=== PATIENT | male | born 1945 | race Caucasian/White ===

== ENCOUNTER 2017-01-25 10:39 | Day surgery (SDC) | payer MEDICARE, BC ==
[~2017-01-25 10:39] MED LIST: Bupivacaine 0.5% 50 ML MDV ONE; Isosulfan Blue 5 ML SDV ONE; Lidocaine 1% with EPINEPHrine 1:100,000 50 ML MDV ONE
[2017-01-25] MEDS ORDERED: Lactated Ringers 1,000 ML IV SCH (12:00)
[2017-01-25] MEDS ORDERED: fentaNYL 100 MCG/2 ML SDV ONE (13:08)
[2017-01-25] MEDS ORDERED: Propofol 200 MG/20 ML SDV ONE (13:09)
[2017-01-25] MEDS ORDERED: Neostigmine Methylsulfate 1 MG/ML 5 ML Syringe ONE (13:09)
[2017-01-25] MEDS ORDERED: Rocuronium 50 MG/5 ML Vial ONE (13:09)
[2017-01-25] MEDS ORDERED: Midazolam 1 MG/ML 2 ML SDV ONE (13:09)
[2017-01-25] MEDS ORDERED: Dexamethasone 4 MG/ML SDV ONE (13:09)
[2017-01-25] MEDS ORDERED: Ondansetron 4 MG/2 ML SDV ONE (13:09)
[2017-01-25] MEDS ORDERED: Isosulfan Blue 5 ML SDV SUBCUT ONE (13:30)
--- NOTE | 2017-01-25 14:05 | NM ---
Lymphoscintigraphy for central localization. Images were obtained following the intradermal injection of 1.1 mCi of technetium 99 filtered sulfur colloid into the right forearm. Images obtained 20 minutes later demonstrates 2 lymph nodes of the right axilla with uptake of the i njected radiopharmaceutical.
[2017-01-25] MEDS ORDERED: Acetaminophen/HYDROcodone 325-5 MG Tab PO ONE (15:00)
[2017-01-25 16:01] VITALS: BP 146/85
--- NOTE | 2017-01-28 08:23 | OR ---
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 POSTOPERATIVE DIAGNOSIS: 1.58 mm thick malignant melanoma, right forearm. PROCEDURE: Right axillary sentinel node biopsy and wide local excision with 1.5 cm margin, right forearm 1.58 mm thick malignant melanoma. ANESTHESIA: General endotracheal. INDICATIONS: This 72-year-old white male underwent a biopsy of a lesion on his right forearm which was pigmented and returned a 1.58 mm thick malignant melanoma, superficial spreading type. He is referred for surgical treatment. I counseled him for wide local excision of this area and also right axillary sentinel node biopsy including risks and alternatives and he gave his informed consent to proceed. PROCEDURE IN DETAIL: Well prior to going to the operating room, we injected technetium-99m sulfur colloid using sterile technique about the scar on the right forearm. Nuclear medicine scanning showed that the tracer went into the axilla. He was then taken to the operating room for the right axillary sentinel biopsy and wide local excision of the primary tumor site. He was placed supine on the operating room table. General endotracheal anesthesia was given. At this point, using sterile technique, we injected isosulfan blue at the primary malignant melanoma site on the right forearm. His right upper extremity, right shoulder, axilla, and right chest were prepped and draped in the usual sterile fashion. Attention was directed to the right axilla first. The Neoprobe was used to identify the site of the sentinel node. A small incision was made over. This was carried bluntly to the sentinel node. It appeared to have some blue dye in it consistent with the isosulfan blue. This was excised. It was tested with a Neoprobe outside the body, noted to be highly radioactive. We then explored the right axilla further and found no additional significant radioactive activity. This incision was then closed in layers with a 3-0 Vicryl stitch placed to approximate the deep tissues in a running fashion, 4-0 Vicryl using a subcuticular stitch was placed to approximate the skin. The axillary incision was covered. The right forearm primary site was then marked, 1.5 cm margins were placed all around the edge of the biopsy site. We then converted this into an ellipse which would be much longer than 1.5 cm in a longitudinal direction. The elliptical incision was then made excising the tissue all way down the fascia which was sent to pathology. The incision was irrigated with sterile water and suctioned dry. A running stitch of 3-0 Vicryl was used to close the deep tissues. 3-0 Prolene and running stitch was placed to approximate the skin. Occasional vertical mattress stitch was placed to achieve good wound edge approximation. A sterile dressing was applied here and Dermabond was applied to the axilla. The anesthesia was reversed. He was extubated and brought to recovery room in good condition. Korey Camacho MD /[id number] SALIMA
== END 2017-01-25 16:10 | disposition home or self-care (01) ==
LOC: JP.SDS 10:39
PROVIDERS: ATTEND Surgery
PROC: 07B50ZX Excision of Right Axillary Lymphatic, Open Approach, Diagnostic (ICD-10-PCS; principal; 2017-01-25)
PROC: 0JBG0ZZ Excision of Right Lower Arm Subcutaneous Tissue and Fascia, Open Approach (ICD-10-PCS; 2017-01-25)
DX: C43.61 Malignant melanoma of right upper limb, including shoulder (principal); Z88.0 Allergy status to penicillin; Z88.8 Allergy status to other drugs, medicaments and biological substances; I12.9 Hypertensive chronic kidney disease with stage 1 through stage 4 chronic kidney disease, or unspecified chronic kidney disease; N18.3 Chronic kidney disease, stage 3 (moderate); E78.5 Hyperlipidemia, unspecified; K21.9 Gastro-esophageal reflux disease without esophagitis; M10.9 Gout, unspecified; G47.33 Obstructive sleep apnea (adult) (pediatric); M17.12 Unilateral primary osteoarthritis, left knee; I45.6 Pre-excitation syndrome; Z79.899 Other long term (current) drug therapy; Z87.891 Personal history of nicotine dependence
CPT/HCPCS: 25073; 38525; 78195; A9270; A9541; J1100; J2250; J2405; J2704; J3010; J7120; Q9968; 88305; 88307; 88341; 88342

== ENCOUNTER 2017-06-21 06:29 | Day surgery (SDC) | payer MEDICARE, BC ==
[2017-06-21] MEDS ORDERED: Bupivacaine 0.5% 50 ML MDV ONE (06:45)
[2017-06-21] MEDS ORDERED: Lidocaine 1% with EPINEPHrine 1:100,000 50 ML MDV ONE (06:45)
[2017-06-21] MEDS ORDERED: Lactated Ringers 1,000 ML IV SCH (07:00)
[2017-06-21] MEDS ORDERED: Clindamycin Phosphate 900 MG in Sodium Chloride 0.9% 100 ML IV ONE (07:30)
[2017-06-21] MEDS ORDERED: fentaNYL 250 MCG/5 ML SDV ONE (07:47)
[2017-06-21] MEDS ORDERED: Dexamethasone 4 MG/ML SDV ONE (07:49)
[2017-06-21] MEDS ORDERED: Propofol 200 MG/20 ML SDV ONE (07:49)
[2017-06-21] MEDS ORDERED: Rocuronium 50 MG/5 ML Vial ONE (07:49)
[2017-06-21] MEDS ORDERED: Neostigmine Methylsulfate 1 MG/ML 5 ML Syringe ONE (07:49)
[2017-06-21] MEDS ORDERED: Ondansetron 4 MG/2 ML SDV ONE (07:49)
[2017-06-21] MEDS ORDERED: Acetaminophen/HYDROcodone 325-5 MG Tab PO ONE ×2 (10:20→14:30)
[2017-06-21] MEDS ORDERED: Ketorolac 30 MG/ML SDV IM ONE (11:20)
[2017-06-21] MEDS ORDERED: Ketorolac 60 MG/2 ML SDV IM ONE (11:20)
[2017-06-21 11:22] VITALS: BP 137/80
--- NOTE | 2017-06-24 08:55 | OR ---
DATE OF PROCEDURE: 06/21/2017 PREOPERATIVE DIAGNOSIS: Bilateral reducible inguinal hernia s. POSTOPERATIVE DIAGNOSIS: Reducible indirect left inguinal hernia. Reducible direct right inguinal hernia. PROCEDURE: Bilateral inguinal hernia repair with mesh plugs and patches. ANESTHESIA: General endotracheal. INDICATIONS: This 72-year-old white male presented with an obvious left inguinal hernia. On exam, he was also found to have a right inguinal hernia. He denies predisposing factors for hernia formation. There are no signs nor symptoms of incarceration or obstruction. He is admitted for repair of his bilateral inguinal hernias. I counseled him for surgery including risks and alternatives, and he gave his informed consent to proceed. DESCRIPTION OF PROCEDURE: After adequate general endotracheal anesthesia was obtained, the patient's lower abdomen, groin, and genitalia were prepped and draped in the usual sterile fashion. Time-out was held. Attention was directed to the left groin first. A left groin incision was made 2 cm superior and medial to the inguinal ligament. This was carried deep using Bovie cautery to the external oblique. The external oblique was opened parallel to the course of its fibers. The spermatic cord was mobilized and a [place] drain was placed about it. The ilioinguinal nerve was identified and divided. The cremasteric fibers were longitudinally to reveal an indirect sac. The floor appeared to be intact. The sac was dissected free back to the peritoneal reflection and reduced back into the abdomen. A large PerFix mesh plug manufactured by [employer] was obtained. The plug was placed down through the defect underneath the fascia and anchored to the underside of the ascia with horizontal mattress stitches of 2-0 Vicryl. The approximation was of the internal leaves to the associated fascia. The onlay patch was then obtained, cut to appropriate length and placed over the inguinal floor. It was anchored to itself around the spermatic cord with a horizontal mattress stitch of 2-0 Vicryl. All looked well. The spermatic cord was returned to the inguinal canal and the external oblique was closed over it with a running stitch of 2-0 Vicryl. Interrupted 3-0 Vicryl stitches were placed to approximate Dean's fascia. The skin was closed with a subcuticular stitch of 4-0 Vicryl. The right groin incision was then made 2 cm superior and medial to the inguinal ligament. This was carried deep sharply to the external oblique. The external oblique was opened parallel to course of its fibers from the internal to the external ring. The spermatic cord was mobilized and a Junior drain was placed about it. The cremasteric fibers were longitudinally to reveal no indirect sac. The floor was essentially gone consistent with a direct inguinal hernia. This was dissected free and reduced back into the abdominal cavity. An extra-large PerFix mesh plug manufactured by [employer] was obtained and placed down under the defect. It was anchored to the underside of the fascia with horizontal mattress stitches of 2-0 Vicryl. The onlay patch was obtained, cut to appropriate length, and placed over the inguinal floor. It was attached to itself around the spermatic cord with a horizontal mattress stitch of 2-0 Vicryl. The ilioinguinal nerve on this side was also divided. The external oblique was closed with a running stitch of 2-0 Vicryl. Interrupted 3-0 Vicryl suture was placed to approximate Dean's fascia. Lidocaine 1% with epinephrine in a 50:50 mix with 0.5% Marcaine was infiltrated about both incisions. The skin incision on the right was then closed with a subcuticular stitch of 4-0 Vicryl. Dermabond was applied to both incisions. The anesthesia was reversed. He was extubated and brought to recovery room in good condition. Korey Camacho MD /[id number] MTDBreanna
== END 2017-06-21 15:38 | disposition home or self-care (01) ==
LOC: JP.SDS 06:29
PROVIDERS: ATTEND Surgery
DX: K40.90 Unilateral inguinal hernia, without obstruction or gangrene, not specified as recurrent (principal); K40.20 Bilateral inguinal hernia, without obstruction or gangrene, not specified as recurrent; G47.33 Obstructive sleep apnea (adult) (pediatric); K21.9 Gastro-esophageal reflux disease without esophagitis; I12.9 Hypertensive chronic kidney disease with stage 1 through stage 4 chronic kidney disease, or unspecified chronic kidney disease; N18.9 Chronic kidney disease, unspecified; Z88.0 Allergy status to penicillin; Z88.8 Allergy status to other drugs, medicaments and biological substances
CPT/HCPCS: 36415; 49505; 80048; 85027; A9270; C1781; J1100; J1885; J2405; J2704; J3010; J7030; J7120; S0077

== ENCOUNTER 2017-11-10 23:03 | Emergency (ER) | payer MEDICARE, BC ==
[2017-11-10] MEDS ORDERED: Aspirin 81 MG Tab.Chew PO ONE (23:30)
[2017-11-10] MEDS ORDERED: Nitroglycerin 0.4 MG Tab.SL SL PRN (23:32)
[2017-11-10] MEDS ORDERED: HYDROmorphone 0.5 MG/0.5 ML Syringe IVPUSH ONE (23:37)
[2017-11-10] MEDS ORDERED: Lactated Ringers 1,000 ML IV SCH (23:45)
--- NOTE | 2017-11-10 23:48 | EDM.PDOC ---
ED HPI GENERAL MEDICAL PROBLEM - General Chief Complaint: Gastrointestinal Problem Stated Complaint: ABD PAIN Time Seen by Provider: 11/10/17 23:30 Source of Information: Reports: Patient, Family, RN History Limitations: Reports: No Limitations - History of Present Illness INITIAL COMMENTS - FREE TEXT/NARRATIVE: 72 yo male here with abdominal pain that began about 2030h tonight. Sx's have been fairly constant since onset and pain does not move around. No fever. No nausea. No change in bowels. Had 2 bowels of wild rice soup for dinner. No hx of any abdominal surgeries. Pain only slightly worse with coughing. Onset: Today Onset Date: 11/10/17 Onset Time: 20:30 Duration: Hour(s):, Constant Location: Reports: Abdomen Quality: Reports: Ache Severity: Moderate Improves with: Reports: None Worsens with: Reports: None Context: Reports: Other (unknown) Associated Symptoms: Reports: No Other Symptoms Treatments [employer]: Reports: Other (see below) (none) Chest Pain Score (Numeric/FACES): 8 - Related Data Allergies Allergy/AdvReac Type Severity Reaction Status Date / Time hydrochlorothiazide Allergy Cannot Verified 11/10/17 23:47 Remember Penicillins Allergy Cannot Verified 11/10/17 23:47 Remember Home Meds: Home Meds ALPRAZolam [Xanax] 0.25 mg PO DAILY PRN 12/14/15 [History] Allopurinol [Zyloprim] 150 mg PO DAILY 12/14/15 [History] Colchicine 0.6 mg PO DAILY 12/14/15 [History] Furosemide 40 mg PO DAILY PRN 12/14/15 [History] Nebivolol [Bystolic] 10 mg PO BID 12/14/15 [History] Ranitidine [Zantac] 150 mg PO BID 12/14/15 [History] Valsartan 160 mg PO BID 12/14/15 [History] amLODIPine Besylate [Amlodipine Besylate] 5 mg PO BID 12/14/15 [History] atorvaSTATin [Lipitor] 40 mg PO BEDTIME 12/14/15 [History] Clindamycin HCl [Cleocin] 600 mg PO ASDIRECTED PRN 11/05/16 [History] Cyclobenzaprine [Flexeril] 10 mg PO BEDTIME PRN 01/24/17 [History] Aspirin [Adult Low Dose Aspirin EC] 81 mg PO DAILY 06/21/17 [History] Past Medical History HEENT History: Reports: Cataract, Impaired Vision Cardiovascular History: Reports: Arrhythmia, High Cholesterol, Hypertension, Other (See Below) Other Cardiovascular History: ablation 20plus years ago Respiratory History: Reports: Sleep Apnea Gastrointestinal History: Reports: Colon Polyp, Gastritis Genitourinary History: Reports: Acute Renal Failure, Renal Disease Musculoskeletal History: Reports: Arthritis, Gout Psychiatric History: Reports: Anxiety Immunologic History: Reports: None Dermatologic History: Reports: Melanoma - Infectious Disease History Infectious Disease History: Reports: Chicken Pox, Measles, Mumps - Past Surgical History Head Surgeries/Procedures: Reports: None HEENT Surgical History: Reports: Cataract Surgery Cardiovascular Surgical History: Reports: Other (See Below) Other Cardiovascular Surgeries/Procedures: ablation Respiratory Surgical History: Reports: None GI Surgical History: Reports: Colonoscopy, EGD Male Surgical History: Reports: None Musculoskeletal Surgical History: Reports: Knee Replacement, Shoulder Surgery Dermatological Surgical History: Reports: Skin Biopsy Social & Family History - Tobacco Use Smoking Status *Q: Former Smoker Years of Tobacco use: 20 Packs/Tins Daily: 1 Used Tobacco, but Quit: Yes Month Tobacco Last Used: December Second Hand Smoke Exposure: No - Caffeine Use Caffeine Use: Reports: Coffee, Soda - Alcohol Use Days Per Week of Alcohol Use: 2 Number of Drinks Per Day: 2 Total Drinks Per Week: 4 - Recreational Drug Use Recreational Drug Use: No ED ROS GENERAL - Review of Systems Review Of Systems: See Below Constitutional: Reports: No Symptoms HEENT: Reports: No Symptoms Respiratory: Reports: No Symptoms Cardiovascular: Reports: No Symptoms Endocrine: Reports: No Symptoms GI/Abdominal: Reports: Abdominal Pain. Denies: Black Stool, Bloody Stool, Constipation, Diarrhea, Decreased Appetite, Distension, Flatus, Hematemesis, Hematochezia, Melena, Nausea, Vomiting : Reports: No Symptoms Musculoskeletal: Reports: No Symptoms Skin: Reports: No Symptoms Neurological: Reports: No Symptoms Psychiatric: Reports: No Symptoms Hematologic/Lymphatic: Reports: No Symptoms Immunologic: Reports: No Symptoms ED EXAM, GI/ABD - Physical Exam Exam: See Below Exam Limited By: No Limitations General Appearance: Alert, WD/WN, No Apparent Distress Eyes: Bilateral: Normal Appearance Ears: Normal External Exam, Normal Canal, Hearing Grossly Normal Nose: Normal Inspection, Normal Mucosa, No Blood Throat/Mouth: Normal Inspection, Normal Lips, Normal Teeth, Normal Oropharynx, Normal Voice, No Airway Compromise Head: Atraumatic, Normocephalic Neck: Normal Inspection, Supple, Non-Tender Respiratory/Chest: No Respiratory Distress, Lungs Clear, Normal Breath Sounds Cardiovascular: Regular Rate, Rhythm, No Edema GI/Abdominal Exam: Normal Bowel Sounds, Soft, No Distention, Tender (diffusely, worse RUQ) Extremities: Normal Inspection, Normal Range of Motion, Non-Tender, Pedal Edema Neurological: Alert, Oriented, CN II-XII Intact, Normal Cognition, No Motor/ Sensory Deficits Psychiatric: Normal Affect, Normal Mood Skin Exam: Warm, Dry, Intact, Normal Color, No Rash Lymphatic: No Adenopathy EKG INTERPRETATION EKG Date: 11/10/17 Time: 23:20 Rhythm: NSR Rate (Beats/Min): 84 [place]: Normal P-Wave: Present QRS: LBBB ST-T: Normal QT: Normal Comparison: No Change Course - Vital Signs Last Recorded V/S: Last Vital Signs Temp 36.2 C 11/10/17 23:47 Pulse 91 11/10/17 23:47 Resp 16 11/10/17 23:47 BP 172/93 H 11/10/17 23:47 Pulse Ox 91 L 11/10/17 23:47 - Orders/Labs/Meds Orders: Active Orders 24 hr Category Date Time Status Cardiac Monitoring [RC] .As Directed Care 11/10/17 23:30 Active EKG Documentation Completion [RC] ASDIRECTED Care 11/10/17 23:30 Active Abdomen Pelvis wo Cont [CT] Stat Exams 11/11/17 02:06 Taken Lactated Ringers [Ringers, Lactated] 1,000 ml Med 11/10/17 23:45 Active IV ASDIRECTED EKG 12 Lead [EK] Routine Ther 11/10/17 23:30 Ordered Medication Orders Lactated Ringer's (Ringers, Lactated) 1,000 mls @ 150 mls/hr IV ASDIRECTED JUDY Last Admin: 11/11/17 00:02 Dose: 150 mls/hr Labs: Laboratory Tests 11/10/17 11/10/17 11/10/17 Range/Units 23:46 23:46 23:46 WBC 11.9 H (4.5-11.0) K/uL RBC 5.24 (4.30-5.90) M/uL Hgb 16.7 H (12.0-15.0) g/dL Hct 48.3 (40.0-54.0) % MCV 92 (80-98) fL MCH 32 H (27-31) pg MCHC 35 (32-36) % Plt Count 215 (150-400) K/uL Sodium 140 (140-148) mmol/L Potassium 4.2 (3.6-5.2) mmol/L Chloride 104 (100-108) mmol/L Carbon Dioxide 23 (21-32) mmol/L Anion Gap 12.7 (5.0-14.0) mmol/L BUN 24 H (7-18) mg/dL Creatinine 1.4 H (0.8-1.3) mg/dL Est Cr Clr Drug Dosing 43.94 mL/min Estimated GFR (MDRD) 50 L (>60) Glucose 122 H (74-106) mg/dL Calcium 9.9 (8.5-10.1) mg/dL Total Bilirubin 1.3 H (0.2-1.0) mg/dL AST 38 H (15-37) U/L ALT 58 (12-78) U/L Alkaline Phosphatase 143 H (46-116) U/L Troponin I (0.000-0.056) ng/mL C-Reactive Protein 0.29 (0.0-0.3) mg/dL Total Protein 7.3 (6.4-8.2) g/dL Albumin 3.7 (3.4-5.0) g/dL Globulin 3.6 H (2.3-3.5) g/dL Albumin/Globulin Ratio 1.0 L (1.2-2.2) Lipase (73-393) U/L Urine Color Urine Appearance Urine pH (4.5-8.0) Ur Specific [place] (1.008-1.030) Urine Protein (NEGATIVE) mg/dL Urine Glucose (UA) (NEGATIVE) mg/dL Urine Ketones (NEGATIVE) mg/dL Urine Occult Blood (NEGATIVE) Urine Nitrite (NEGAITVE) Urine Bilirubin (NEGATIVE) Urine Urobilinogen (NORMAL) mg/dL Ur Leukocyte Esterase (NEGATIVE) Urine RBC (0-5) Urine WBC (0-5) Ur Epithelial Cells Amorphous Sediment Urine Bacteria Urine Mucus 12/10/1811/11/17 11/11/17 Range/Units 00:17 00:19 00:26 WBC (4.5-11.0) K/uL RBC (4.30-5.90) M/uL Hgb (12.0-15.0) g/dL Hct (40.0-54.0) % MCV (80-98) fL MCH (27-31) pg MCHC (32-36) % Plt Count (150-400) K/uL Sodium (140-148) mmol/L Potassium (3.6-5.2) mmol/L Chloride (100-108) mmol/L Carbon Dioxide (21-32) mmol/L Anion Gap (5.0-14.0) mmol/L BUN (7-18) mg/dL Creatinine (0.8-1.3) mg/dL Est Cr Clr Drug Dosing mL/min Estimated GFR (MDRD) (>60) Glucose (74-106) mg/dL Calcium (8.5-10.1) mg/dL Total Bilirubin (0.2-1.0) mg/dL AST (15-37) U/L ALT (12-78) U/L Alkaline Phosphatase (46-116) U/L Troponin I < 0.017 (0.000-0.056) ng/mL C-Reactive Protein (0.0-0.3) mg/dL Total Protein (6.4-8.2) g/dL Albumin (3.4-5.0) g/dL Globulin (2.3-3.5) g/dL Albumin/Globulin Ratio (1.2-2.2) Lipase 206 (73-393) U/L Urine Color Yellow Urine Appearance Clear Urine pH 6.0 (4.5-8.0) Ur Specific [place] 1.015 (1.008-1.030) Urine Protein 500 H (NEGATIVE) mg/dL Urine Glucose (UA) Normal (NEGATIVE) mg/dL Urine Ketones Negative (NEGATIVE) mg/dL Urine Occult Blood Moderate (NEGATIVE) Urine Nitrite Negative (NEGAITVE) Urine Bilirubin Negative (NEGATIVE) Urine Urobilinogen Normal (NORMAL) mg/dL Ur Leukocyte Esterase Negative (NEGATIVE) Urine RBC 0-5 (0-5) Urine WBC 0-5 (0-5) Ur Epithelial Cells Few Amorphous Sediment Not seen Urine Bacteria Few Urine Mucus Not seen Meds: Medications Generic Name Dose Route Start Last Admin Trade Name Fredahiana PRN Reason Stop Dose Admin Lactated Ringer's 1,000 mls @ 150 mls/hr 11/10/17 23:45 11/11/17 00:02 Ringers, Lactated IV 150 mls/hr ASDIRECTED JUDY Administration Discontinued Medications Generic Name Dose Route Start Last Admin Trade Name Saniya PRN Reason Stop Dose Admin Aspirin 324 mg 11/10/17 23:30 Aspirin PO 11/10/17 23:31 ONETIME ONE Hydromorphone HCl 0.5 mg 11/10/17 23:37 11/11/17 00:02 Dilaudid IVPUSH 11/10/17 23:38 0.5 mg ONETIME ONE Administration Hydromorphone HCl 0.5 mg 11/11/17 02:06 11/11/17 02:11 Dilaudid IVPUSH 11/11/17 02:07 0.5 mg ONETIME ONE Administration Lactated Ringer's 1,000 mls @ 1,000 mls/hr 11/11/17 01:18 Ringers, Lactated IV 11/11/17 02:17 BOLUS ONE Sodium Chloride 80 mls @ 4 mls/sec 11/11/17 01:56 Normal Saline IV 11/11/17 01:57 ASDIRECTED STA Iopamidol 130 ml 11/11/17 01:56 Isovue-300 (61%) IV 11/11/17 01:57 . DIRECTED STA Nitroglycerin 0.4 mg 11/10/17 23:32 Nitrostat SL Q5M PRN Chest Pain Ondansetron HCl 4 mg 11/10/17 23:58 11/11/17 00:03 Zofran IVPUSH 11/10/17 23:59 4 mg ONETIME ONE Administration - Radiology Interpretation Free Text/Narrative:: CT abd/pelvis without contrast(done due to Cr 1.5)-non-specific findings CT Results Date: 11/11/17 CT Results Time: 02:45 Departure - Departure Time of Disposition: 02:55 Disposition: Home, Self-Care 01 Condition: Fair Clinical Impression: Nonspecific abdominal pain - Discharge Information Referrals: Richard Rossi MD [Primary Care Provider] - Forms: ED Department Discharge - My Orders Last 24 Hours: My Active Orders 11/10/17 23:30 Cardiac Monitoring [RC] .As Directed EKG Documentation Completion [RC] ASDIRECTED EKG 12 Lead [EK] Routine 11/10/17 23:45 Lactated Ringers [Ringers, Lactated] 1,000 ml IV ASDIRECTED 11/11/17 02:06 Abdomen Pelvis wo Cont [CT] Stat - Assessment/Plan Last 24 Hours: My Active Orders 11/10/17 23:30 Cardiac Monitoring [RC] .As Directed EKG Documentation Completion [RC] ASDIRECTED EKG 12 Lead [EK] Routine 11/10/17 23:45 Lactated Ringers [Ringers, Lactated] 1,000 ml IV ASDIRECTED 11/11/17 02:06 Abdomen Pelvis wo Cont [CT] Stat
[2017-11-10] MEDS ORDERED: Ondansetron 4 MG/2 ML SDV IVPUSH ONE (23:58)
[2017-11-11] MEDS ORDERED: Lactated Ringers 1,000 ML IV ONE (01:18)
[2017-11-11] MEDS ORDERED: Sodium Chloride 0.9% 80 ML IV STA (01:56)
[2017-11-11] MEDS ORDERED: Iopamidol 612 MG/ML 150 ML Bottle IV STA (01:56)
[2017-11-11] MEDS ORDERED: HYDROmorphone 0.5 MG/0.5 ML Syringe IVPUSH ONE (02:06)
[2017-11-11 02:58] VITALS: BP 174/87
== END 2017-11-11 03:05 | disposition home or self-care (01) ==
LOC: JP.ED 23:03
DX: R10.9 Unspecified abdominal pain (principal); I10 Essential (primary) hypertension; E78.00 Pure hypercholesterolemia, unspecified; F41.9 Anxiety disorder, unspecified; Z87.891 Personal history of nicotine dependence; Z79.82 Long term (current) use of aspirin; Z79.899 Other long term (current) drug therapy; Z88.0 Allergy status to penicillin; Z88.8 Allergy status to other drugs, medicaments and biological substances
CPT/HCPCS: 36415; 74176; 80053; 81001; 83690; 84484; 85027; 86140; 93005; 96361; 96374; 96375; 96376; 99285; J1170; J2405; J7120; 93010; 99284

== ENCOUNTER 2017-12-06 07:54 | Observation (INO) | payer MEDICARE, BC ==
[~2017-12-06 07:54] MED LIST changes: -Isosulfan Blue 5 ML SDV ONE
[2017-12-06] MEDS ORDERED: Dextrose 5%-Lactated Ringers 1,000 ML IV SCH (09:30)
[2017-12-06] MEDS ORDERED: Levofloxacin/Dextrose 5%-Water 500 MG in Premix Bag 1 BAG IV ONE (10:30)
[2017-12-06] MEDS ORDERED: Clindamycin Phosphate 900 MG in Sodium Chloride 0.9% 100 ML IV ONE (10:30)
[2017-12-06] MEDS ORDERED: fentaNYL 250 MCG/5 ML SDV ONE (10:48)
[2017-12-06] MEDS ORDERED: Dexamethasone 4 MG/ML SDV ONE (10:49)
[2017-12-06] MEDS ORDERED: Ondansetron 4 MG/2 ML SDV ONE (10:49)
[2017-12-06] MEDS ORDERED: Rocuronium 50 MG/5 ML Vial ONE (10:49)
[2017-12-06] MEDS ORDERED: Neostigmine Methylsulfate 1 MG/ML 5 ML Syringe ONE (10:49)
[2017-12-06] MEDS ORDERED: Glycopyrrolate 0.2 MG/ML 5 ML MDV ONE (10:49)
[2017-12-06] MEDS ORDERED: Propofol 200 MG/20 ML SDV ONE (10:49)
[2017-12-06] MEDS ORDERED: Furosemide 40 MG Tab PO PRN (12:04)
[2017-12-06] MEDS ORDERED: Cyclobenzaprine 10 MG Tab PO PRN (12:04)
[2017-12-06] MEDS ORDERED: Ondansetron 4 MG/2 ML SDV IVPUSH PRN (12:08)
[2017-12-06] MEDS ORDERED: fentaNYL 100 MCG/2 ML SDV IVPUSH PRN (12:08)
[2017-12-06] MEDS: Lactated Ringers 1,000 ML IV SCH ×2 (13:31→21:37)
--- NOTE | 2017-12-06 15:18 | OR ---
DATE OF PROCEDURE: 12/06/2017 PREOPERATIVE DIAGNOSES: Chronic cholecystitis, slightly elevated bilirubin and alkaline phosphatase, cholelithiasis. POSTOPERATIVE DIAGNOSES: Chronic cholecystitis, slightly elevated bilirubin and alkaline phosphatase, cholelithiasis. PROCEDURES: Laparoscopic cholecystectomy with attempted intraoperative cholangiogram, unsuccessful. SURGEON: Korey Camacho MD. ANESTHESIA: General endotracheal. INDICATION: This 72-year-old white male complained of upper abdominal pain. He presented to the emergency room. He was found to be tender in his right upper quadrant. CAT scan and ultrasound showed cholelithiasis. There was no ductal dilatation. His alkaline phosphatase and total bilirubin were slightly elevated. Total bilirubin was 1.3. He is admitted for a laparoscopic cholecystectomy with intraoperative cholangiogram. I counseled him for surgery including risks and alternatives, and he gave his informed consent to proceed. DESCRIPTION OF PROCEDURE: After adequate general endotracheal anesthesia was obtained, the patient's abdomen was prepped and draped in the usual sterile fashion. Time -out was held. The leg compression stockings were in place and used during the entire procedure. An infraumbilical semicircular incision was made. Under direct vision, a 12-mm port was introduced into the abdomen through this incision using the Optiview technique. The camera was introduced into the abdomen, and the abdomen was insufflated to a pressure of 20 mmHg with carbon dioxide. No evidence of intraabdominal injury was seen. Under direct vision, a 12-mm port was placed in the epigastrium and a 5-mm port was placed in the right lower quadrant. The gallbladder was grasped and elevated. It was noted to be soft, but it had a white erythematous hue consistent with chronic cholecystitis. There were adhesions of omentum to it consistent with chronic cholecystitis. These were dissected free. The cystic duct and arteries were dissected free. The cystic artery was clipped three times proximally and divided between clips. The duct was clipped at the gall bladder and we made a ductotomy. A cholangiocatheter, manufactured by [employer], was introduced into the duct. The balloon was blown up. However, we were unable to do the cholangiogram as, with injection of fluid, the balloon would come out of the ductotomy site, and we could not get anything to inject. The cholangiocatheter was then removed. The duct was clipped 3 times adjacent to the ductotomy and divided. This was all done well away from the common duct. The gallbladder was then dissected free from the gallbladder bed using Bovie electrocautery. The gallbladder was placed in a sample retrieval bag and elevated up through the anterior abdominal wall via the epigastric port site. It was delivered from the field, where it was cultured off the field and had small stones. The epigastric port was re-introduced back into the abdomen. The gallbladder bed was irrigated and suctioned dry. Hemostasis was noted. We decided to leave a Jett-Miles drain in place in the unlikely event that the there could be stone in the common duct, which would be followed with liver functions tomorrow, in which case, he might need ERCP. The fascial closure device was then used to place an 0 Vicryl stitch in the epigastric fascial defect. The infraumbilical port was removed with an interrupted stitch of 0 Vicryl used to close this fascial defect. The Jett-Miles drain was anchored with 2-0 silk suture. Lidocaine 1% with epinephrine in a 50:50 mix with 0.5% Marcaine was infiltrated about all incisions. 4-0 Vicryl using a subcuticular stitch was placed to approximate the skin of the epigastric and infraumbilical incisions. Dermabond was applied. The anesthesia was reversed. He was extubated and brought to the recovery room in a good condition. Korey Camacho MD /[id number] MTDD
[2017-12-06] MEDS: Acetaminophen/HYDROcodone 325-5 MG Tab PO PRN ×2 (16:22→20:26)
[2017-12-06] MEDS: amLODIPine 5 MG Tab PO SCH (20:30)
[2017-12-06] MEDS ORDERED: atorvaSTATin 20 MG Tab PO SCH (21:00)
[2017-12-07] MEDS: Acetaminophen/HYDROcodone 325-5 MG Tab PO PRN ×6 (00:39→21:11)
[2017-12-07] MEDS: ALPRAZolam 0.25 MG Tab PO PRN ×2 (00:39→13:08)
[2017-12-07] MEDS: Lactated Ringers 1,000 ML IV SCH ×2 (05:17→21:16)
[2017-12-07] MEDS: Colchicine 0.6 MG Tab PO SCH ×2 (08:39→08:42)
[2017-12-07] MEDS: Cholecalciferol (Vitamin D3) 1,000 Unit Tab PO SCH (08:39)
[2017-12-07] MEDS: amLODIPine 5 MG Tab PO SCH (08:57)
[2017-12-07] MEDS ORDERED: Allopurinol 300 MG Tab PO SCH (09:00)
[2017-12-07] MEDS ORDERED: ALPRAZolam 0.25 MG Tab PO PRN ×2 (15:36→20:30)
[2017-12-07] MEDS ORDERED: Melatonin 3 MG Tab PO PRN (15:39)
[2017-12-07] MEDS: Docusate Sodium 100 MG Cap PO SCH ×2 (17:10→21:12)
[2017-12-07] MEDS ORDERED: ALPRAZOLAM 0.25 MG PO PRN (20:53)
[2017-12-07] MEDS ORDERED: AMLODIPINE 10 MG PO SCH (21:00)
[2017-12-07] MEDS ORDERED: RANITIDINE 150 MG PO SCH (21:00)
[2017-12-07] MEDS ORDERED: VALSARTAN 80 MG PO SCH (21:00)
[2017-12-07] MEDS ORDERED: NEBIVOLOL 10 MG PO SCH (21:00)
[2017-12-07] MEDS ORDERED: ATORVASTATIN 20 MG PO SCH (21:00)
[2017-12-08] MEDS: Acetaminophen/HYDROcodone 325-5 MG Tab PO PRN ×2 (01:23→05:59)
[2017-12-08] MEDS ORDERED: ALPRAZolam 0.25 MG Tab PO PRN (08:52)
[2017-12-08] MEDS ORDERED: NEBIVOLOL 10 MG PO SCH (09:00)
[2017-12-08] MEDS ORDERED: Ranitidine 150 MG (PTOM) PO SCH (09:00)
[2017-12-08] MEDS ORDERED: COLCHICINE 0.6 MG PO SCH (09:00)
[2017-12-08] MEDS ORDERED: VALSARTAN 160 MG PO SCH (09:00)
[2017-12-08] MEDS ORDERED: AMLODIPINE 10 MG PO SCH (09:00)
[2017-12-08] MEDS ORDERED: ALLOPURINOL 300 MG PO SCH (09:00)
[2017-12-08] MEDS: Cholecalciferol (Vitamin D3) 1,000 Unit Tab PO SCH (09:30)
[2017-12-08 09:31] VITALS: BP 163/77
--- NOTE | 2017-12-08 09:55 | PCM.SURGPN ---
- General Info Date of Service: 12/08/17 Date of Surgery/Procedure: 12/07/17 POD#: 2 Admission Diagnosis/Problem: Cholecystectomy Functional Status: Reports: Pain Controlled, Tolerating Diet, Ambulating, Urinating, Incentive Spirometry - Review of Systems General: Reports: No Symptoms HEENT: Reports: No Symptoms Pulmonary: Reports: No Symptoms Cardiovascular: Reports: No Symptoms Gastrointestinal: Reports: No Symptoms Genitourinary: Reports: No Symptoms Musculoskeletal: Reports: No Symptoms Skin: Reports: No Symptoms Neurological: Reports: No Symptoms Psychiatric: Reports: No Symptoms - Patient Data Vitals - Most Recent: Last Vital Signs Temp 96.8 F 12/08/17 07:38 Pulse 80 12/08/17 09:28 Resp 18 12/08/17 07:38 BP 163/77 H 12/08/17 09:29 Pulse Ox 94 L 12/08/17 07:38 Weight - Most Recent: 143 lb 6.4 oz I&O - Last 24 Hours: Intake & Output 12/07/17 12/08/17 12/08/17 22:59 06:59 14:59 Intake Total 1990 1431 Output Total 230 515 Balance 1760 916 Lab Results Last 24 Hrs: Laboratory Results - last 24 hr 12/07/17 12/08/17 12/08/17 Range/Units 09:40 04:45 04:45 WBC 11.4 H (4.5-11.0) K/uL RBC 4.14 L (4.30-5.90) M/uL Hgb 13.1 (12.0-15.0) g/dL Hct 39.1 L (40.0-54.0) % MCV 94 (80-98) fL MCH 32 H (27-31) pg MCHC 34 (32-36) % Plt Count 171 (150-400) K/uL Sodium 139 L (140-148) mmol/L Potassium 4.2 (3.6-5.2) mmol/L Chloride 105 (100-108) mmol/L Carbon Dioxide 26 (21-32) mmol/L Anion Gap 12.2 (5.0-14.0) mmol/L BUN 27 H (7-18) mg/dL Creatinine 1.5 H (0.8-1.3) mg/dL Est Cr Clr Drug Dosing 40.35 mL/min Estimated GFR (MDRD) 46 L (>60) Glucose 114 H (74-106) mg/dL Calcium 8.3 L (8.5-10.1) mg/dL Total Bilirubin 1.3 H (0.2-1.0) mg/dL Direct Bilirubin 0.34 H 0.23 H (0.0-0.2) mg/dL AST 43 H (15-37) U/L ALT 73 (12-78) U/L Alkaline Phosphatase 101 (46-116) U/L Total Protein 5.3 L (6.4-8.2) g/dL Albumin 2.9 L (3.4-5.0) g/dL Globulin 2.4 (2.3-3.5) g/dL Albumin/Globulin Ratio 1.2 (1.2-2.2) Celso Results Last 24 Hrs: Microbiology 12/06/17 12:26 Anaerobic Culture - Preliminary Gallbladder Fluid - Bile NO GROWTH AFTER 2 DAYS 12/06/17 12:33 Gram Stain - Final Gallbladder Fluid - Bile Wound Culture - Preliminary NO GROWTH AFTER 2 DAYS Med Orders - Current: Current Medications Hydrocodone Bitart/Acetaminophen (Caribou 325-5 Mg) 1 - 2 tab PO Q4H PRN PRN Reason: Pain (moderate 4-6) Last Admin: 12/08/17 05:59 Dose: 2 tab Allopurinol (Zyloprim) 150 mg PO DAILY [facility] Last Admin: 12/08/17 09:28 Dose: 150 mg Alprazolam (Xanax) 0.25 mg PO Q4H PRN PRN Reason: Anxiety Alprazolam (Xanax) 0.25 mg PO DAILY PRN PRN Reason: Anxiety Amlodipine Besylate (Norvasc) 5 mg PO BID [facility] Last Admin: 12/08/17 09:29 Dose: 5 mg Cholecalciferol (Vitamin D3) 2,000 units PO DAILY [facility] Last Admin: 12/08/17 09:30 Dose: Not Given Colchicine (Colcrys) 0.6 mg PO DAILY [facility] Last Admin: 12/08/17 09:29 Dose: Not Given Cyclobenzaprine HCl (Flexeril) 10 mg PO BEDTIME PRN PRN Reason: Muscle Spasm Docusate Sodium (Colace) 100 mg PO BID [facility] Last Admin: 12/07/17 21:12 Dose: 100 mg Fentanyl (Sublimaze) 50 mcg IVPUSH Q1H PRN PRN Reason: Pain (severe 7-10) Furosemide (Lasix) 40 mg PO DAILY PRN PRN Reason: .retention Dextrose/Lactated Ringer's (Dextrose 5%-Lactated Ringers) 1,000 mls @ 100 mls/ hr IV ASDIRECTED [facility] Last Admin: 12/06/17 08:57 Dose: 100 mls/hr Lactated Ringer's (Ringers, Lactated) 1,000 mls @ 125 mls/hr IV ASDIRECTED [facility] Last Admin: 12/07/17 21:16 Dose: 125 mls/hr Melatonin (Melatonin) 9 mg PO BEDTIME PRN PRN Reason: Insomnia Last Admin: 12/08/17 01:24 Dose: 9 mg Nebivolol (Bystolic) 10 mg PO BID [facility] Last Admin: 12/08/17 09:28 Dose: 10 mg Ondansetron HCl (Zofran) 4 mg IVPUSH Q6H PRN PRN Reason: Nausea/Vomiting Last Admin: 12/06/17 13:29 Dose: 4 mg Atorvastatin 40mg ( (Ptom)) 0 each PO BEDTIME [facility] Valsartan 160mg ( (Ptom)) 0 each PO BID [facility] Last Admin: 12/08/17 09:27 Dose: 1 each Ranitidine HCl (Zantac) 150 mg PO BID [facility] Last Admin: 12/08/17 09:26 Dose: 150 mg Discontinued Medications Allopurinol (Zyloprim) 150 mg PO DAILY [facility] Last Admin: 12/07/17 08:39 Dose: 150 mg Alprazolam (Xanax) 0.25 mg PO DAILY PRN PRN Reason: Anxiety Last Admin: 12/07/17 13:08 Dose: 0.25 mg Alprazolam (Xanax) 0.25 mg PO Q4H PRN PRN Reason: Anxiety Alprazolam (Xanax) 0.25 mg PO DAILY PRN PRN Reason: Anxiety Amlodipine Besylate (Norvasc) 5 mg PO BID [facility] Last Admin: 12/07/17 08:57 Dose: 5 mg Amlodipine Besylate (Norvasc) 5 mg PO BID [facility] Last Admin: 12/07/17 21:07 Dose: 5 mg Atorvastatin Calcium (Lipitor) 40 mg PO BEDTIME [facility] Last Admin: 12/06/17 20:32 Dose: 40 mg Atorvastatin Calcium (Lipitor) 40 mg PO BEDTIME [facility] Last Admin: 12/07/17 21:10 Dose: 40 mg Bupivacaine HCl (Marcaine 0.5%) Confirm Administered Dose 50 ml .ROUTE .ST-MED ONE Stop: 12/06/17 06:40 Last Admin: 12/06/17 12:05 Dose: 10 ml Colchicine (Colcrys) 0.6 mg PO DAILY [facility] Last Admin: 12/07/17 08:42 Dose: Not Given Dexamethasone (Dexamethasone) Confirm Administered Dose 4 mg .ROUTE .STK-MED ONE Stop: 12/06/17 10:50 Fentanyl (Sublimaze) Confirm Administered Dose 250 mcg .ROUTE .[facility]-MED ONE Stop: 12/06/17 10:49 Glycopyrrolate (Robinul) Confirm Administered Dose 1 mg .ROUTE .ST-MED ONE Stop: 12/06/17 10:50 Clindamycin Phosphate 900 mg/ (Sodium Chloride) 106 mls @ 200 mls/hr IV ONETIME ONE Stop: 12/06/17 11:01 Last Admin: 12/06/17 10:45 Dose: 200 mls/hr Levofloxacin/Dextrose 500 mg/ (Premix) 100 mls @ 100 mls/hr IV ONETIME ONE Stop: 12/06/17 11:29 Last Admin: 12/06/17 11:15 Dose: 100 mls/hr Lactated Ringer's (Ringers, Lactated) 1,000 ml IRR .ST-MED ONE Stop: 12/06/17 11:21 Last Admin: 12/06/17 11:20 Dose: 1,000 ml Lidocaine/Epinephrine (Xylocaine 1% With Epinephrine 1:100,000) Confirm Administered Dose 50 ml .ROUTE .ST-MED ONE Stop: 12/06/17 06:40 Last Admin: 12/06/17 12:05 Dose: 10 ml Nebivolol (Bystolic) 10 mg PO BID [facility] Last Admin: 12/07/17 08:37 Dose: 10 mg Nebivolol (Bystolic) 10 mg PO BID [facility] Last Admin: 12/07/17 21:09 Dose: 10 mg Neostigmine Methylsulfate (Neostigmine) Confirm Administered Dose 5 mg .ROUTE .ST-MED ONE Stop: 12/06/17 10:50 Ondansetron HCl (Zofran) Confirm Administered Dose 4 mg .ROUTE .STK-MED ONE Stop: 12/06/17 10:50 Propofol (Diprivan 20 Ml) Confirm Administered Dose 200 mg .ROUTE .STK-MED ONE Stop: 12/06/17 10:50 Ranitidine HCl (Zantac) 150 mg PO BID [facility] Last Admin: 12/07/17 08:38 Dose: 150 mg Ranitidine HCl (Zantac) 150 mg PO BID [facility] Last Admin: 12/07/17 21:10 Dose: 150 mg Rocuronium Climax (Zemuron) Confirm Administered Dose 50 mg .ROUTE .STK-MED ONE Stop: 12/06/17 10:50 Valsartan (Diovan) 160 mg PO BID [facility] Last Admin: 12/07/17 08:40 Dose: 160 mg Valsartan (Diovan) 160 mg PO BID [facility] Last Admin: 12/07/17 21:06 Dose: 160 mg - Exam Wound/Incisions: Healing Well, Drainage (In CRISTINO. ) General: Alert, Oriented, Cooperative, No Acute Distress Lungs: Clear to Auscultation, Normal Respiratory Effort Cardiovascular: Regular Rate, Regular Rhythm GI/Abdominal Exam: Normal Bowel Sounds, Soft, Non-Tender, No Organomegaly, No Distention Extremities: Normal Inspection Skin: Warm, Dry, Intact Neurological: No New Focal Deficit Psy/Mental Status: Alert, Normal Affect, Normal Mood - Problem List & Annotations (1) Cholecystitis with cholelithiasis SNOMED Code(s): 419839850 Code(s): K80.10 - CALCULUS OF GALLBLADDER W CHRONIC CHOLECYST W/O OBSTRUCTION Status: Acute Current Visit: Yes Qualifiers: Cholelithiasis location: gallbladder Cholecystitis acuity: chronic Biliary obstruction: without biliary obstruction Qualified Code(s): K80.10 - Calculus of gallbladder with chronic cholecystitis without obstruction - Problem List Review Problem List Initiated/Reviewed/Updated: Yes - My Orders Last 24 Hours: Active Orders 24 hr Category Date Time Status Patient Status [ADT] Routine ADT 12/07/17 10:00 Active Ready for Discharge [RC] PER UNIT ROUTINE Care 12/08/17 09:43 Ordered ALPRAZolam [Xanax] Med 12/08/17 08:52 Active 0.25 mg PO DAILY PRN ALPRAZolam [Xanax] Med 12/07/17 20:30 Active 0.25 mg PO Q4H PRN Allopurinol [Zyloprim] Med 12/08/17 09:00 Active 150 mg PO DAILY Cholecalciferol (Vitamin D3) [Vitamin D3] Med 12/07/17 09:00 Active 2,000 units PO DAILY Colchicine [Colcrys] Med 12/08/17 09:00 Active 0.6 mg PO DAILY Docusate Sodium [Colace] Med 12/07/17 15:45 Active 100 mg PO BID Melatonin Med 12/07/17 15:39 Active 9 mg PO BEDTIME PRN Nebivolol [Bystolic] Med 12/08/17 09:00 Active 10 mg PO BID Patient's Own Medication [Ptom] Med 12/08/17 21:00 Active 0 each PO BEDTIME Patient's Own Medication [Ptom] Med 12/08/17 09:00 Active 0 each PO BID Ranitidine [Zantac] Med 12/08/17 09:00 Active 150 mg PO BID amLODIPine [Norvasc] Med 12/08/17 09:00 Active 5 mg PO BID Medication Orders Hydrocodone Bitart/Acetaminophen (Car[place]ou 325-5 Mg) 1 - 2 tab PO Q4H PRN PRN Reason: Pain (moderate 4-6) Last Admin: 12/08/17 05:59 Dose: 2 tab Admin: 12/08/17 01:23 Dose: 2 tab Admin: 12/07/17 21:11 Dose: 2 tab Admin: 12/07/17 17:09 Dose: 2 tab Admin: 12/07/17 13:07 Dose: 2 tab Admin: 12/07/17 08:35 Dose: 2 tab Admin: 12/07/17 04:31 Dose: 2 tab Admin: 12/07/17 00:39 Dose: 2 tab Admin: 12/06/17 20:26 Dose: 2 tab Admin: 12/06/17 16:22 Dose: 2 tab Allopurinol (Zyloprim) 150 mg PO DAILY [facility] Last Admin: 12/08/17 09:28 Dose: 150 mg Alprazolam (Xanax) 0.25 mg PO Q4H PRN PRN Reason: Anxiety Alprazolam (Xanax) 0.25 mg PO DAILY PRN PRN Reason: Anxiety Amlodipine Besylate (Norvasc) 5 mg PO BID [facility] Last Admin: 12/08/17 09:29 Dose: 5 mg Cholecalciferol (Vitamin D3) 2,000 units PO DAILY [facility] Last Admin: 12/08/17 09:30 Dose: Not Given Admin: 12/07/17 08:39 Dose: 2,000 units Colchicine (Colcrys) 0.6 mg PO DAILY [facility] Last Admin: 12/08/17 09:29 Dose: Not Given Cyclobenzaprine HCl (Flexeril) 10 mg PO BEDTIME PRN PRN Reason: Muscle Spasm Docusate Sodium (Colace) 100 mg PO BID [facility] Last Admin: 12/07/17 21:12 Dose: 100 mg Admin: 12/07/17 17:10 Dose: Not Given Fentanyl (Sublimaze) 50 mcg IVPUSH Q1H PRN PRN Reason: Pain (severe 7-10) Furosemide (Lasix) 40 mg PO DAILY PRN PRN Reason: .retention Dextrose/Lactated Ringer's (Dextrose 5%-Lactated Ringers) 1,000 mls @ 100 mls/ hr IV ASDIRECTED [facility] Last Admin: 12/06/17 08:57 Dose: 100 mls/hr Lactated Ringer's (Ringers, Lactated) 1,000 mls @ 125 mls/hr IV ASDIRECTED [facility] Last Admin: 12/07/17 21:16 Dose: 125 mls/hr Infusion: 12/07/17 13:17 Dose: 125 mls/hr Admin: 12/07/17 05:17 Dose: 125 mls/hr Infusion: 12/07/17 05:17 Dose: 125 mls/hr Admin: 12/06/17 21:37 Dose: 125 mls/hr Infusion: 12/06/17 21:31 Dose: 125 mls/hr Admin: 12/06/17 13:31 Dose: 125 mls/hr Melatonin (Melatonin) 9 mg PO BEDTIME PRN PRN Reason: Insomnia Last Admin: 12/08/17 01:24 Dose: 9 mg Nebivolol (Bystolic) 10 mg PO BID [facility] Last Admin: 12/08/17 09:28 Dose: 10 mg Ondansetron HCl (Zofran) 4 mg IVPUSH Q6H PRN PRN Reason: Nausea/Vomiting Last Admin: 12/06/17 13:29 Dose: 4 mg Atorvastatin 40mg ( (Ptom)) 0 each PO BEDTIME [facility] Valsartan 160mg ( (Ptom)) 0 each PO BID [facility] Last Admin: 12/08/17 09:27 Dose: 1 each Ranitidine HCl (Zantac) 150 mg PO BID [facility] Last Admin: 12/08/17 09:26 Dose: 150 mg - Assessment Assessment (Free Text/Narrative):: WHERE IS MY NOTE FROM YESTERDAY WHICH I DID??? Today he is doing fine, eating and wants to go home. We kept him as his bilirubin was up at 2., primarily indirect (direct 0.34). Today his bilirubin is down to 1.3 (where it was preroperatively) primarily indirect (direct 0.23). - Plan Plan (Free Text/Narrative):: Discharge after removal of his CRISTINO.
[2017-12-08] MEDS: Docusate Sodium 100 MG Cap PO SCH (10:32)
[2017-12-08] MEDS ORDERED: ATORVASTATIN 40MG (PTOM) PO SCH (21:00)
== END 2017-12-08 10:45 | disposition home or self-care (01) ==
LOC: JP.SDS 07:54 → JP.MS 12:08 → JP.SDS 12-07 10:00
PROVIDERS: ADMIT Surgery; ATTEND Surgery
DX: K80.10 Calculus of gallbladder with chronic cholecystitis without obstruction (principal); G47.33 Obstructive sleep apnea (adult) (pediatric); I45.6 Pre-excitation syndrome; E78.5 Hyperlipidemia, unspecified; I12.9 Hypertensive chronic kidney disease with stage 1 through stage 4 chronic kidney disease, or unspecified chronic kidney disease; K21.9 Gastro-esophageal reflux disease without esophagitis; N18.3 Chronic kidney disease, stage 3 (moderate); K76.0 Fatty (change of) liver, not elsewhere classified; M17.12 Unilateral primary osteoarthritis, left knee; M1A.30X0 Chronic gout due to renal impairment, unspecified site, without tophus (tophi); Z86.010 Personal history of colon polyps; Z96.652 Presence of left artificial knee joint; Z79.82 Long term (current) use of aspirin; Z88.8 Allergy status to other drugs, medicaments and biological substances; Z88.0 Allergy status to penicillin; Z87.891 Personal history of nicotine dependence
CPT/HCPCS: 36415; 47562; 74018; 80053; 82248; 85025; 85027; 87070; 87075; 87205; 94762; 96361; 96365; A9270; G0378; J1100; J1956; J2405; J2704; J2710; J3010; J7030; J7042; J7120; 88304; S0077

== ENCOUNTER 2019-09-25 06:58 | Day surgery (SDC) | payer MEDICARE, BC ==
[2019-09-25] MEDS: Lactated Ringers 1,000 ML IV SCH (07:33)
[2019-09-25] MEDS ORDERED: Propofol 200 MG/20 ML SDV ONE ×2 (07:34→08:32)
[2019-09-25] MEDS ORDERED: Midazolam 1 MG/ML 2 ML SDV ONE (07:35)
[2019-09-25] MEDS ORDERED: fentaNYL 100 MCG/2 ML SDV ONE (07:35)
[2019-09-25 09:49] VITALS: BP 134/76; PULSE 62
--- NOTE | 2019-09-28 09:15 | OR ---
DATE OF PROCEDURE: 09/25/2019 SURGEON: Korey Camacho MD PREOPERATIVE DIAGNOSIS: History of tubular adenomas. POSTOPERATIVE DIAGNOSES: Three right-sided colon polyps, history of tubular adenomas. PROCEDURES: Colonoscopy to the cecum with biopsy resection of colon polyps x2 and snare cautery polypectomy x1. ANESTHESIA: IV anesthesia with monitored anesthesia care. INDICATION: This 74-year-old white male is referred for a colonoscopy because of a history of tubular adenomas. His last colonoscopic exam was done about 3 years ago where a couple of tubular adenomas were removed. I counseled him for the procedure, including risks and alternatives, and he gave his informed consent to proceed. DESCRIPTION OF PROCEDURE: The patient was placed in the left lateral decubitus position. IV anesthesia was administered by the Anesthesia Service. Time-out was held. A rectal exam was performed, which was unremarkable. The flexible video Olympus colonoscope was introduced through his anus, up his rectum, out his colon all the way to the cecum. En route, at the hepatic flexure, we encountered a polyp, which was large enough to pass a snare about it. It was amputated as electrocautery was applied. It was aspirated up on the end of the scope and the scope was removed with the polyp retrieved from the end of the scope. The scope was reintroduced back up to the hepatic flexure. Residual polypoid tissue was removed with a snare and biopsy forceps. The scope was then passed to the cecum and slowly withdrawn. In the proximal right colon, we saw a small polyp which was removed with the biopsy forceps and in the distal right colon, we saw another small polyp, which was removed with the biopsy forceps. The scope was withdrawn the rest of the way with no other lesions noted. The scope was retroflexed in the rectum with the distal rectum appearing unremarkable. The scope was straightened and removed. He tolerated the procedure well. Korey Camacho MD /[id number]
== END 2019-09-25 09:57 | disposition home or self-care (01) ==
LOC: JP.SDS 06:58
PROVIDERS: ATTEND Surgery
DX: Z12.11 Encounter for screening for malignant neoplasm of colon (principal); D12.3 Benign neoplasm of transverse colon; D12.2 Benign neoplasm of ascending colon; E78.5 Hyperlipidemia, unspecified; K21.9 Gastro-esophageal reflux disease without esophagitis; G47.33 Obstructive sleep apnea (adult) (pediatric); M10.9 Gout, unspecified; N18.3 Chronic kidney disease, stage 3 (moderate); Z88.8 Allergy status to other drugs, medicaments and biological substances; Z86.010 Personal history of colon polyps
CPT/HCPCS: 45380; 45385; J2250; J2704; J3010; J7120

== ENCOUNTER 2021-03-06 07:25 | Emergency (ER) | payer MEDICARE, BC ==
[2021-03-06] MEDS ORDERED: Sodium Chloride 0.9% 10 ML Syringe FLUSH PRN (07:41)
[2021-03-06] MEDS: Aspirin 81 MG Tab.Chew PO ONE (07:49)
[2021-03-06] MEDS: Aspirin 81 MG Tab.Chew ONE (07:49)
--- NOTE | 2021-03-06 07:50 | EDM.PDOC ---
ED HPI GENERAL MEDICAL PROBLEM - General Chief Complaint: Chest Pain Stated Complaint: CHEST PAIN Time Seen by Provider: 03/06/21 07:35 Source of Information: Reports: Patient, Old Records History Limitations: Reports: No Limitations - History of Present Illness INITIAL COMMENTS - FREE TEXT/NARRATIVE: 76 yo male is here with moderate anterior chest pressure that began in the mi ddle of the night and awoke him from sleep. Pain did go away for awhile after Peptobismol, but then came back. Has known CAD. Has NTG at home, but did not take any. Last Saturday had an exercise stress test, but does not yet know the results. Has a known LBBB. Describes pain now as 7/10 in severity. Took none of his morning meds yet today. Says Dr. Rossi had him stop his amlodipine a week ago due to fluid retention in his legs, he is not sure what dose he was on. Onset: Today, Sudden Onset Date: 03/06/21 Onset Time: 03:00 Duration: Hour(s):, Constant Location: Reports: Chest Quality: Reports: Pressure Severity: Moderate Improves with: Reports: None Worsens with: Reports: Other (unsure) Context: Reports: Other (See HPI) Associated Symptoms: Reports: No Other Symptoms Treatments ALLOCATIONS CLERK: Reports: Other (see below) (one dose of Peptobismol in the night) Chest Pain Score (Numeric/FACES): 8 - Related Data Allergies Allergy/AdvReac Type Severity Reaction Status Date / Time hydrochlorothiazide Allergy Rash Verified 03/06/21 07:41 Penicillins Allergy Rash Verified 03/06/21 07:41 Home Meds: Home Meds ALPRAZolam [Xanax] 0.25 mg PO DAILY PRN 12/14/15 [History] Colchicine 0.6 mg PO DAILY 12/14/15 [History] Furosemide 40 mg PO DAILY 12/14/15 [History] Nebivolol [Bystolic] 20 mg PO BID 12/14/15 [History] atorvaSTATin [Lipitor] 40 mg PO BEDTIME 12/14/15 [History] Cholecalciferol (Vitamin D3) [Vitamin D3] 2,000 units PO DAILY 12/04/17 [History] Aspirin [Halfprin] 81 mg PO DAILY 09/23/19 [History] Clindamycin HCl 600 mg PO ASDIRECTED 09/23/19 [History] Famotidine [Pepcid] 20 mg PO BID 09/23/19 [History] Irbesartan [Avapro] 300 mg PO DAILY 09/23/19 [History] cloNIDine [Catapres] 0.1 mg PO DAILY 09/23/19 [History] Nitroglycerin [Nitrostat] 0.4 mg SL ASDIRECTED 03/06/21 [History] Past Medical History HEENT History: Reports: Cataract, Impaired Vision Cardiovascular History: Reports: Arrhythmia, High Cholesterol, Hypertension, [place], Other (See Below) Other Cardiovascular History: ablation 20plus years ago Respiratory History: Reports: Sleep Apnea Gastrointestinal History: Reports: Cholelithiasis, Colon Polyp, Gastritis Genitourinary History: Reports: Acute Renal Failure, Renal Disease Musculoskeletal History: Reports: Arthritis, Fracture, Gout Psychiatric History: Reports: Anxiety Immunologic History: Reports: None Oncologic (Cancer) History: Reports: Malignant Melanoma Dermatologic History: Reports: Melanoma - Infectious Disease History Infectious Disease History: Reports: Chicken Pox, Measles, Mumps - Past Surgical History Head Surgeries/Procedures: Reports: None HEENT Surgical History: Reports: Cataract Surgery Cardiovascular Surgical History: Reports: Other (See Below) Other Cardiovascular Surgeries/Procedures: ablation Respiratory Surgical History: Reports: None GI Surgical History: Reports: Cholecystectomy, Colonoscopy, EGD, Hernia, Inguinal Male Surgical History: Reports: None Musculoskeletal Surgical History: Reports: Knee Replacement, Shoulder Surgery Oncologic Surgical History: Reports: None Dermatological Surgical History: Reports: Skin Biopsy Social & Family History - Caffeine Use Caffeine Use: Reports: Coffee ED ROS GENERAL - Review of Systems Review Of Systems: See Below Constitutional: Reports: No Symptoms HEENT: Reports: No Symptoms Respiratory: Reports: No Symptoms Cardiovascular: Reports: Chest Pain Endocrine: Reports: No Symptoms GI/Abdominal: Reports: No Symptoms : Reports: No Symptoms Musculoskeletal: Reports: No Symptoms Skin: Reports: No Symptoms Neurological: Reports: No Symptoms Psychiatric: Reports: No Symptoms ED EXAM, GENERAL - Physical Exam Exam: See Below Exam Limited By: No Limitations General Appearance: Alert, WD/WN, No Apparent Distress Eye Exam: Bilateral Eye: Normal Inspection Ears: Normal External Exam, Normal Canal, Hearing Grossly Normal Ear Exam: Bilateral Ear: Auricle Normal, Canal Normal Nose: Normal Inspection, No Blood Throat/Mouth: Normal Inspection, Normal Lips, Normal Oropharynx, Normal Voice, No Airway Compromise Head: Atraumatic, Normocephalic Neck: Normal Inspection Respiratory/Chest: No Respiratory Distress, Lungs Clear, Normal Breath Sounds, No Accessory Muscle Use, Chest Non-Tender Cardiovascular: Regular Rate, Rhythm, No Edema GI/Abdominal: Normal Bowel Sounds, Soft, Non-Tender, No Distention. No: Distended Back Exam: Normal Inspection. No: CVA Tenderness (R), CVA Tenderness (L) Extremities: Normal Inspection, Normal Range of Motion, Non-Tender, Pedal Edema (Trace pitting edema of both LE's). No: No Pedal Edema Neurological: Alert, Oriented, CN II-XII Intact, Normal Cognition, No Motor/Sensory Deficits Psychiatric: Normal Affect, Normal Mood Skin Exam: Warm, Dry, Intact, Normal Color, No Rash #1 Interpretation EKG Date: 03/06/21 Time: 07:30 Rhythm: NSR Rate (Beats/Min): 94 P-Wave: Present QRS: LBBB (not new) ST-T: Depressed (seems more pronounced in lateral leads than in his last EKG.) QT: Normal Comparison: Change From Previous EKG Course - Vital Signs Last Recorded V/S: Last Vital Signs Temp 36.6 C 03/06/21 07:38 Pulse 94 03/06/21 08:00 Resp 13 03/06/21 08:00 BP 182/108 H 03/06/21 08:00 Pulse Ox 91 L 03/06/21 08:00 - Orders/Labs/Meds Orders: Active Orders 24 hr Category Date Time Status Cardiac Monitoring [RC] .As Directed Care 03/06/21 07:25 Active EKG Documentation Completion [RC] ASDIRECTED Care 03/06/21 07:25 Active Oxygen Therapy Adult [Oxygen Therapy, ED] [RC] Care 03/06/21 07:42 Active ASDIRECTED Nitroglycerin [Nitrostat] Med 03/06/21 07:40 Active 0.4 mg SL Q5M PRN Sodium Chloride 0.9% [Saline Flush] Med 03/06/21 07:41 Active 10 ml FLUSH ASDIRECTED PRN Saline Lock Insert [OM.PC] Routine Oth 03/06/21 07:41 Ordered EKG 12 Lead [EK] Routine Ther 03/06/21 07:25 Ordered Medication Orders Nitroglycerin (Nitroglycerin 0.4 Mg Tab.Sl) 0.4 mg SL Q5M PRN PRN Reason: Chest Pain Last Admin: 03/06/21 07:51 Dose: 0.4 mg Documented by: CHRISTIANO Sodium Chloride (Sodium Chloride 0.9% 10 Ml Syringe) 10 ml FLUSH ASDIRECTED PRN PRN Reason: Keep Vein Open Labs: Laboratory Tests 03/06/21 03/06/21 03/06/21 Range/Units 07:41 07:41 10:23 WBC 11.1 H (4.5-11.0) K/uL RBC 5.07 (4.30-5.90) M/uL Hgb 16.7 H D (12.0-15.0) g/dL Hct 47.9 (40.0-54.0) % MCV 95 (80-98) fL MCH 33 H (27-31) pg MCHC 35 (32-36) % Plt Count 217 (150-400) K/uL Sodium 148 (140-148) mmol/L Potassium 4.4 (3.6-5.2) mmol/L Chloride 107 (100-108) mmol/L Carbon Dioxide 24 (21-32) mmol/L Anion Gap 17.5 H (5.0-14.0) mmol/L BUN 36 H (7-18) mg/dL Creatinine 2.1 H (0.8-1.3) mg/dL Est Cr Clr Drug Dosing 27.54 mL/min Estimated GFR (MDRD) 31 L (>60) Glucose 121 H (74-106) mg/dL Calcium 10.1 D (8.5-10.1) mg/dL Troponin I < 0.017 0.396 H* (0.000-0.056) ng/mL Meds: Medications Generic Name Dose Route Start Last Admin Trade Name Freq PRN Reason Stop Dose Admin Nitroglycerin 0.4 mg 03/06/21 07:40 03/06/21 07:51 Nitroglycerin 0.4 Mg Tab.Sl SL 0.4 mg Q5M PRN Administration Chest Pain Sodium Chloride 10 ml 03/06/21 07:41 Sodium Chloride 0.9% 10 Ml Syringe FLUSH ASDIRECTED PRN Keep Vein Open Discontinued Medications Generic Name Dose Route Start Last Admin Trade Name Freq PRN Reason Stop Dose Admin Al Hydroxide/Mg Hydroxide 30 ml 03/06/21 08:01 03/06/21 08:04 Aluminum Hydroxide/Magnesium Hydroxide/Simethicone Susp 30 Ml Cup PO 03/06/21 08:02 30 ml ONETIME ONE Administration Alprazolam 0.25 mg 03/06/21 09:08 03/06/21 09:30 Alprazolam 0.25 Mg Tab PO 03/06/21 09:09 0.25 mg NOW ONE Administration Aspirin 324 mg 03/06/21 07:41 03/06/21 07:49 Aspirin 81 Mg Tab.Chew PO 03/06/21 07:42 324 mg ONETIME ONE Administration Aspirin Confirm 03/06/21 07:48 03/06/21 07:49 Aspirin 81 Mg Tab.Chew Administered 03/06/21 07:49 Not Given Dose 81 mg .ROUTE .STK-MED ONE Clonidine HCl 0.1 mg 03/06/21 07:47 03/06/21 07:52 Clonidine 0.1 Mg Tab PO 03/06/21 07:48 0.1 mg ONETIME ONE Administration Famotidine 20 mg 03/06/21 07:50 03/06/21 07:58 Famotidine 20 Mg Tab PO 03/06/21 07:51 20 mg ONETIME ONE Administration Furosemide 40 mg 03/06/21 07:53 03/06/21 07:58 Furosemide 40 Mg Tab PO 03/06/21 07:54 40 mg ONETIME ONE Administration Losartan Potassium 100 mg 03/06/21 07:49 03/06/21 07:57 Losartan 50 Mg Tab PO 03/06/21 07:50 100 mg ONETIME ONE Administration Nebivolol 20 mg 03/06/21 07:47 03/06/21 07:58 Nebivolol 10 Mg Tab PO 03/06/21 07:48 20 mg STAT STA Administration - Re-Assessments/Exams Free Text/Narrative Re-Assessment/Exam: 03/06/21 08:14 Pain decreased from a 7 to a 1 after NTG x 1. Free Text/Narrative Re-Assessment/Exam: 03/06/21 08:21 Pain went from 1/10 to 0/10 after Maalox. Free Text/Narrative Re-Assessment/Exam: 03/06/21 11:01 Fed him breakfast while waiting. Departure - Departure Time of Disposition: 11:50 Disposition: DC/Tfer to Acute Hospital 02 Reason for Transfer *Q: Other Condition: Serious Clinical Impression: Non-STEMI (non-ST elevated myocardial infarction), Mild dehydration CRF (chronic renal failure) Qualifiers: Chronic kidney disease stage: stage 3 (moderate) Chronic kidney disease stage 3 subtype: stage 3b (GFR 30-44) Qualified Code(s): N18.32 - Chronic kidney disease, stage 3b Referrals: Richard Rossi MD [Primary Care Provider] - Forms: ED Department Discharge Sepsis Event Note (ED) - Evaluation Sepsis Screening Result: No Definite Risk - Focused Exam Vital Signs: Vital Signs Temp Pulse Pulse Resp BP BP Pulse Ox 03/06/21 08:00 94 13 182/108 H 91 L 03/06/21 07:58 96 182/108 H 03/06/21 07:57 182/108 H 03/06/21 07:52 199/109 H 03/06/21 07:51 199/109 H 03/06/21 07:38 36.6 C 94 14 199/109 H 97 - My Orders Last 24 Hours: My Active Orders 03/06/21 07:25 Cardiac Monitoring [RC] .As Directed EKG Documentation Completion [RC] ASDIRECTED EKG 12 Lead [EK] Routine 03/06/21 07:40 Nitroglycerin [Nitrostat] 0.4 mg SL Q5M PRN 03/06/21 07:41 Sodium Chloride 0.9% [Saline Flush] 10 ml FLUSH ASDIRECTED PRN Saline Lock Insert [OM.PC] Routine 03/06/21 07:42 Oxygen Therapy Adult [Oxygen Therapy, ED] [RC] ASDIRECTED - Assessment/Plan Last 24 Hours: My Active Orders 03/06/21 07:25 Cardiac Monitoring [RC] .As Directed EKG Documentation Completion [RC] ASDIRECTED EKG 12 Lead [EK] Routine 03/06/21 07:40 Nitroglycerin [Nitrostat] 0.4 mg SL Q5M PRN 03/06/21 07:41 Sodium Chloride 0.9% [Saline Flush] 10 ml FLUSH ASDIRECTED PRN Saline Lock Insert [OM.PC] Routine 03/06/21 07:42 Oxygen Therapy Adult [Oxygen Therapy, ED] [RC] ASDIRECTED
[2021-03-06] MEDS: Nitroglycerin 0.4 MG Tab.SL SL PRN (07:51)
[2021-03-06] MEDS: cloNIDine 0.1 MG Tab PO ONE (07:52)
[2021-03-06] MEDS: Losartan 50 MG Tab PO ONE (07:57)
[2021-03-06] MEDS: Famotidine 20 MG Tab PO ONE (07:58)
[2021-03-06] MEDS: Furosemide 40 MG Tab PO ONE (07:58)
[2021-03-06] MEDS: Aluminum Hydroxide/Magnesium Hydroxide/Simethicone Susp 30 ML Cup PO ONE (08:04)
--- NOTE | 2021-03-06 09:10 | CR ---
CHEST: Portable 03/06/2021 at 8:35 AM CLINICAL HISTORY:Chest pain COMPARISON:None FINDINGS: The heart is enlarged. Pulmonary vascular is normal. No infiltrate effusion or pneumothorax is seen. There are atherosclerotic changes in the aorta. IMPRESSION: No acute cardiopulmonary process. Cardiomegaly
[2021-03-06] MEDS: ALPRAZolam 0.25 MG Tab PO ONE (09:30)
[2021-03-06] MEDS: Heparin Sodium 5,000 Units/ML Vial IVPUSH ONE (11:36)
[2021-03-06] MEDS: Heparin Sodium/D5W 25,000 UNITS/500 ML BAG IV SCH (11:36)
[2021-03-06] MEDS: Ticagrelor 90 MG Tab PO ONE (11:37)
[2021-03-06] MEDS: LORazepam 0.5 MG Tab PO ONE (11:41)
[2021-03-06 12:13] VITALS: BP 205/111; PULSE 76
== END 2021-03-06 13:07 ==
LOC: JP.ED 07:25
DX: I21.4 Non-ST elevation (NSTEMI) myocardial infarction (principal); E86.0 Dehydration; E78.00 Pure hypercholesterolemia, unspecified; I10 Essential (primary) hypertension; I25.2 Old myocardial infarction; M10.9 Gout, unspecified; Z79.82 Long term (current) use of aspirin; Z79.899 Other long term (current) drug therapy; Z88.8 Allergy status to other drugs, medicaments and biological substances; Z88.0 Allergy status to penicillin
CPT/HCPCS: 36415; 71045; 80048; 84484; 85027; 93005; 96365; 99285; A9270; J1644

== ENCOUNTER 2021-05-24 16:35 | Emergency (ER) | payer MEDICARE, BC ==
[2021-05-24 17:17] VITALS: BP 171/103; PULSE 85
[2021-05-24] MEDS ORDERED: Lidocaine 2% Viscous Solution 15 ML Cup TOP ONE (17:29)
--- NOTE | 2021-05-24 17:33 | EDM.PDOC ---
ED HPI GENERAL MEDICAL PROBLEM - General Chief Complaint: Upper Extremity Injury/Pain Stated Complaint: TRIPPED AND HURT LEFT ARM Time Seen by Provider: 05/24/21 17:25 Source of Information: Reports: Patient, Family, Old Records, RN History Limitations: Reports: No Limitations - History of Present Illness INITIAL COMMENTS - FREE TEXT/NARRATIVE: 76 yo male fell at home and incurred a skin tear to his L forearm. No other injuries. Is not sure about his last tetanus. Is on blood thinners. Onset: Today, Sudden Onset Date: 05/24/21 Duration: Minutes:, Constant Location: Reports: Upper Extremity, Left Quality: Reports: Burning Severity: Mild Improves with: Reports: None Worsens with: Reports: None Context: Reports: Trauma Associated Symptoms: Reports: No Other Symptoms Treatments LEAF TINNER: Reports: Other (see below) (wrapped wound) Left Arm Pain Score (Numeric/FACES): 4 - Related Data Allergies Allergy/AdvReac Type Severity Reaction Status Date / Time hydrochlorothiazide Allergy Rash Verified 03/06/21 07:41 Penicillins Allergy Rash Verified 03/06/21 07:41 Home Meds: Home Meds ALPRAZolam [Xanax] 0.25 mg PO DAILY PRN 12/14/15 [History] Colchicine 0.6 mg PO DAILY 12/14/15 [History] Furosemide 40 mg PO DAILY 12/14/15 [History] Nebivolol [Bystolic] 20 mg PO BID 12/14/15 [History] atorvaSTATin [Lipitor] 40 mg PO BEDTIME 12/14/15 [History] Cholecalciferol (Vitamin D3) [Vitamin D3] 2,000 units PO DAILY 12/04/17 [History] Aspirin [Halfprin] 81 mg PO DAILY 09/23/19 [History] Clindamycin HCl 600 mg PO ASDIRECTED 09/23/19 [History] Famotidine [Pepcid] 20 mg PO BID 09/23/19 [History] Irbesartan [Avapro] 300 mg PO DAILY 09/23/19 [History] cloNIDine [Catapres] 0.1 mg PO DAILY 09/23/19 [History] Nitroglycerin [Nitrostat] 0.4 mg SL ASDIRECTED 03/06/21 [History] Past Medical History HEENT History: Reports: Cataract, Impaired Vision Cardiovascular History: Reports: Arrhythmia, High Cholesterol, Hypertension, [place], Other (See Below) Other Cardiovascular History: ablation 20plus years ago Respiratory History: Reports: Sleep Apnea Gastrointestinal History: Reports: Cholelithiasis, Colon Polyp, Gastritis Genitourinary History: Reports: Acute Renal Failure, Renal Disease Musculoskeletal History: Reports: Arthritis, Fracture, Gout Psychiatric History: Reports: Anxiety Immunologic History: Reports: None Oncologic (Cancer) History: Reports: Malignant Melanoma Dermatologic History: Reports: Melanoma - Infectious Disease History Infectious Disease History: Reports: Chicken Pox, Measles, Mumps - Past Surgical History Head Surgeries/Procedures: Reports: None HEENT Surgical History: Reports: Cataract Surgery Cardiovascular Surgical History: Reports: Other (See Below) Other Cardiovascular Surgeries/Procedures: ablation Respiratory Surgical History: Reports: None GI Surgical History: Reports: Cholecystectomy, Colonoscopy, EGD, Hernia, Inguinal Male Surgical History: Reports: None Musculoskeletal Surgical History: Reports: Knee Replacement, Shoulder Surgery Oncologic Surgical History: Reports: None Dermatological Surgical History: Reports: Skin Biopsy Social & Family History - Tobacco Use Tobacco Use Status *Q: Never Tobacco User - Caffeine Use Caffeine Use: Reports: Coffee - Recreational Drug Use Recreational Drug Use: No Review of Systems - Review of Systems Review Of Systems: See Below Constitutional: Reports: No Symptoms Musculoskeletal: Reports: No Symptoms Skin: Reports: Wound (skin tear L lateral forearm) Neurological: Reports: No Symptoms ED EXAM, GENERAL - Physical Exam Exam: See Below Exam Limited By: No Limitations General Appearance: Alert, WD/WN, No Apparent Distress Extremities: Normal Range of Motion, Other (wound L forearm). No: Pedal Edema, Limited Range of Motion, Increased Warmth Neurological: Alert, Oriented, CN II-XII Intact, Normal Cognition, No Motor/Sensory Deficits Psychiatric: Normal Affect, Normal Mood Skin Exam: Warm, Dry, Normal Color, No Rash, Wound/Incision (skin tear L lateral forearm). No: Intact Course - Vital Signs Text/Narrative:: Wound cleaned and debrided and dressed by RN. Last Recorded V/S: Last Vital Signs Temp 35.7 C L 05/24/21 16:49 Pulse 85 05/24/21 16:49 Resp 16 05/24/21 16:49 BP 171/103 H 05/24/21 16:49 Pulse Ox 95 05/24/21 16:49 - Orders/Labs/Meds Orders: Active Orders 24 hr Category Date Time Status Vaccines to be Administered [RC] PER UNIT ROUTINE Care 05/24/21 17:35 Active Bacitracin [Bacitracin Oint 1 GM] Med 05/24/21 18:08 Once 4 dose TOP ONETIME ONE Meds: Medications Discontinued Medications Generic Name Dose Route Start Last Admin Trade Name Saniya PRN Reason Stop Dose Admin Diphtheria/Tetanus/Acell Pertussis 0.5 ml 05/24/21 17:35 Diphtheria,Pertussis(Acell),Tetanus Vaccine 0.5 Ml Syringe IM 05/24/21 17:36 .ONCE ONE Lidocaine HCl 15 ml 05/24/21 17:29 05/24/21 17:47 Lidocaine 2% Viscous Solution 15 Ml Cup TOP 05/24/21 17:30 15 ml ONETIME ONE Administration Departure - Departure Time of Disposition: 18:15 Disposition: Home, Self-Care 01 Condition: Good Clinical Impression: Skin tear of left forearm without complication Qualifiers: Encounter type: initial encounter Qualified Code(s): S51.812A - Laceration without foreign body of left forearm, initial encounter - Discharge Information *PRESCRIPTION DRUG MONITORING PROGRAM REVIEWED*: Not Applicable *COPY OF PRESCRIPTION DRUG MONITORING REPORT IN PATIENT TRACEY: Not Applicable Instructions: Skin Tear, [id number] Referrals: Richard Rossi MD [Primary Care Provider] - Forms: ED Department Discharge Additional Instructions: Starting tomorrow clean wound with either soap and water or 1/2 water and 1/2 peroxide twice daily. Dry. Apply antibiotic ointment and a new dressing. Take acetaminophen as needed for pain relief. Recheck in the clinic on Saturday, call for an appt. Sepsis Event Note (ED) - Evaluation Sepsis Screening Result: No Definite Risk - Focused Exam Vital Signs: Vital Signs Temp Pulse Resp BP Pulse Ox 05/24/21 16:49 35.7 C L 85 16 171/103 H 95 - My Orders Last 24 Hours: My Active Orders 05/24/21 17:35 Vaccines to be Administered [RC] PER UNIT ROUTINE 05/24/21 18:08 Bacitracin [Bacitracin Oint 1 GM] 4 dose TOP ONETIME ONE - Assessment/Plan Last 24 Hours: My Active Orders 05/24/21 17:35 Vaccines to be Administered [RC] PER UNIT ROUTINE 05/24/21 18:08 Bacitracin [Bacitracin Oint 1 GM] 4 dose TOP ONETIME ONE
[2021-05-24] MEDS ORDERED: Diphtheria,Pertussis(Acell),Tetanus Vaccine 0.5 ML Syringe IM ONE (17:35)
[2021-05-24] MEDS ORDERED: Bacitracin Oint 1 GM U/D Packet TOP ONE (18:08)
== END 2021-05-24 18:30 | disposition home or self-care (01) ==
LOC: JP.ED 16:35
DX: S51.812A Laceration without foreign body of left forearm, initial encounter (principal); E78.00 Pure hypercholesterolemia, unspecified; I10 Essential (primary) hypertension; I25.2 Old myocardial infarction; Z79.82 Long term (current) use of aspirin; Z79.899 Other long term (current) drug therapy; Z23 Encounter for immunization; Z88.0 Allergy status to penicillin; W01.0XXA Fall on same level from slipping, tripping and stumbling without subsequent striking against object, initial encounter; Y92.009 Unspecified place in unspecified non-institutional (private) residence as the place of occurrence of the external cause
CPT/HCPCS: 90471; 90715; 99282; A9270

== ENCOUNTER 2021-08-02 10:59 | Emergency (ER) | payer MEDICARE, BC ==
[2021-08-02] MEDS ORDERED: Sodium Polystyrene Sulfonate 15 GM/60 ML Susp 60 ML Bot PO ONE (11:04)
--- NOTE | 2021-08-02 11:12 | EDM.PDOC ---
ED HPI GENERAL MEDICAL PROBLEM - General Chief Complaint: General Stated Complaint: FROM CLINIC SAID TO HAVE HEART CHECKED OUT Time Seen by Provider: 08/02/21 11:06 Source of Information: Reports: Patient, Old Records, RN History Limitations: Reports: Other (no call from the clinic) - History of Present Illness INITIAL COMMENTS - FREE TEXT/NARRATIVE: 76 yo male with a pHx of CRF was sent over from the clinic apparently for hyperkalemia. He was seen in the local [facility] this morning and today's labs there show a K of 6.9 up from 5.3 on 05/09/21 and his Cr increased from 2.1 on 05/09/21 to 3.09 today. His glc was 99 today. He was seen in the clinic today by Giorgi Lee PA-C. He is on Avapro currently and furosemide. Says his BP generally runs around 140/80. No recent changes in his diet that includes more potassium. Feels normal for him except some recent loose stools. Is not on any K supplements. Onset: Gradual Duration: Other (unsure) Location: Reports: Generalized Quality: Reports: Other (pain not reported) Severity: Moderate Improves with: Reports: None Worsens with: Reports: Other (? 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) (none) - Related Data Allergies Allergy/AdvReac Type Severity Reaction Status Date / Time hydrochlorothiazide Allergy Rash Verified 03/06/21 07:41 Penicillins Allergy Rash Verified 03/06/21 07:41 Home Meds: Home Meds ALPRAZolam [Xanax] 0.25 mg PO DAILY PRN 12/14/15 [History] Furosemide 20 mg PO DAILY 12/14/15 [History] atorvaSTATin [Lipitor] 40 mg PO BEDTIME 12/14/15 [History] Cholecalciferol (Vitamin D3) [Vitamin D3] 2,000 units PO DAILY 12/04/17 [History] Clindamycin HCl 600 mg PO ASDIRECTED 09/23/19 [History] Famotidine [Pepcid] 20 mg PO BID 09/23/19 [History] Irbesartan [Avapro] 150 mg PO DAILY 09/23/19 [History] Nitroglycerin [Nitrostat] 0.4 mg SL ASDIRECTED 03/06/21 [History] Aspirin 81 mg PO DAILY 08/02/21 [History] Metoprolol Succinate 200 mg PO DAILY 08/02/21 [History] Sodium Bicarbonate 650 mg PO DAILY 08/02/21 [History] Tamsulosin HCl [Flomax] 0.4 mg PO DAILY 08/02/21 [History] Triamcinolone Acetonide [Triamcinolone Acetonide 0.1% Crm] 1 applic .XX BID 08/02/21 [History] allopurinoL [Zyloprim] 150 mg PO DAILY 08/02/21 [History] Past Medical History HEENT History: Reports: Cataract, Impaired Vision Cardiovascular History: Reports: Arrhythmia, High Cholesterol, Hypertension, MD, Other (See Below) Other Cardiovascular History: ablation 20plus years ago Respiratory History: Reports: Sleep Apnea Gastrointestinal History: Reports: Cholelithiasis, Colon Polyp, Gastritis Genitourinary History: Reports: Acute Renal Failure, Renal Disease Musculoskeletal History: Reports: Arthritis, Fracture, Gout Psychiatric History: Reports: Anxiety Immunologic History: Reports: None Oncologic (Cancer) History: Reports: Malignant Melanoma Dermatologic History: Reports: Melanoma - Infectious Disease History Infectious Disease History: Reports: Chicken Pox, Measles, Mumps - Past Surgical History Head Surgeries/Procedures: Reports: None HEENT Surgical History: Reports: Cataract Surgery Cardiovascular Surgical History: Reports: Other (See Below) Other Cardiovascular Surgeries/Procedures: ablation Respiratory Surgical History: Reports: None GI Surgical History: Reports: Cholecystectomy, Colonoscopy, EGD, Hernia, Inguinal Male Surgical History: Reports: None Musculoskeletal Surgical History: Reports: Knee Replacement, Shoulder Surgery Oncologic Surgical History: Reports: None Dermatological Surgical History: Reports: Skin Biopsy Social & Family History - Caffeine Use Caffeine Use: Reports: Coffee ED ROS GENERAL - Review of Systems Review Of Systems: See Below Constitutional: Reports: No Symptoms HEENT: Reports: No Symptoms Respiratory: Reports: No Symptoms Cardiovascular: Reports: No Symptoms Endocrine: Reports: No Symptoms GI/Abdominal: Reports: Diarrhea : Reports: No Symptoms Musculoskeletal: Reports: No Symptoms Skin: Reports: No Symptoms Neurological: Reports: No Symptoms Psychiatric: Reports: No Symptoms ED EXAM, GENERAL - Physical Exam Exam: See Below Exam Limited By: No Limitations General Appearance: Alert, WD/WN, No Apparent Distress Eye Exam: Bilateral Eye: Normal Inspection Ears: Normal External Exam, Normal Canal, Hearing Grossly Normal Ear Exam: Bilateral Ear: Auricle Normal, Canal Normal Nose: Normal Inspection, No Blood Throat/Mouth: Normal Inspection, Normal Lips, Normal Oropharynx, Normal Voice, No Airway Compromise Head: Atraumatic, Normocephalic Neck: Normal Inspection Respiratory/Chest: No Respiratory Distress, Lungs Clear, Normal Breath Sounds, No Accessory Muscle Use Cardiovascular: Regular Rate, Rhythm, No Edema GI/Abdominal: Normal Bowel Sounds, Soft, Non-Tender, No Distention Back Exam: Normal Inspection. No: CVA Tenderness (R), CVA Tenderness (L) Extremities: Normal Inspection, Normal Range of Motion, Non-Tender, No Pedal Edema Neurological: Alert, Oriented, CN II-XII Intact, Normal Cognition, No Motor/Sensory Deficits Psychiatric: Normal Affect, Normal Mood Skin Exam: Warm, Dry, Intact, Normal Color, No Rash #1 Interpretation EKG Date: 08/02/21 Time: 11:05 Rhythm: NSR Rate (Beats/Min): 78 [place]: Normal P-Wave: Present QRS: LBBB ST-T: Normal QT: Normal Course - Vital Signs Last Recorded V/S: Last Vital Signs Temp 36.7 C 08/02/21 11:30 Pulse 92 08/02/21 16:09 Resp 12 08/02/21 16:09 BP 181/112 H 08/02/21 16:09 Pulse Ox 95 08/02/21 16:09 - Orders/Labs/Meds Orders: Active Orders 24 hr Category Date Time Status Cardiac Monitoring [RC] .As Directed Care 08/02/21 11:00 Active Furosemide [Lasix] Med 08/02/21 11:45 Active 40 mg IVPUSH DAILY Sodium Chloride 0.9% [Normal Saline] 1,000 ml Med 08/02/21 11:15 Active IV ASDIRECTED Sodium Chloride 0.9% [Normal Saline] 1,000 ml Med 08/02/21 13:45 Active IV ASDIRECTED EKG 12 Lead [EK] Routine Ther 08/02/21 11:02 Ordered Medication Orders Furosemide (Furosemide 40 Mg/4 Ml Vial) 40 mg IVPUSH DAILY JUDY Last Admin: 08/02/21 11:59 Dose: 40 mg Documented by: PAVITHRA Sodium Chloride (Normal Saline) 1,000 mls @ 500 mls/hr IV ASDIRECTED JUDY Last Admin: 08/02/21 13:45 Dose: 500 mls/hr Documented by: Infusion: 08/02/21 13:27 Dose: 500 mls/hr Documented by: Admin: 08/02/21 11:27 Dose: 500 mls/hr Documented by: PAVITHRA Sodium Chloride (Normal Saline) 1,000 mls @ 500 mls/hr IV ASDIRECTED JUDY Last Admin: 08/02/21 13:48 Dose: 500 mls/hr Documented by: PAVITHRA Labs: Laboratory Tests 08/02/21 08/02/21 08/02/21 Range/Units 11:24 13:08 15:42 Potassium 6.4 H* 5.9 H 5.4 H (3.6-5.2) mmol/L Meds: Medications Generic Name Dose Route Start Last Admin Trade Name Freq PRN Reason Stop Dose Admin Furosemide 40 mg 08/02/21 11:45 08/02/21 11:59 Furosemide 40 Mg/4 Ml Vial IVPUSH 40 mg DAILY JUDY Administration Sodium Chloride 1,000 mls @ 500 mls/hr 08/02/21 11:15 08/02/21 13:45 Normal Saline IV 500 mls/hr ASDIRECTED JUDY Administration Sodium Chloride 1,000 mls @ 500 mls/hr 08/02/21 13:45 08/02/21 13:48 Normal Saline IV 500 mls/hr ASDIRECTED JUDY Administration Discontinued Medications Generic Name Dose Route Start Last Admin Trade Name Freq PRN Reason Stop Dose Admin Amlodipine Besylate 10 mg 08/02/21 13:40 08/02/21 13:43 Amlodipine 5 Mg Tab PO 08/02/21 13:41 10 mg ONETIME ONE Administration Furosemide 60 mg 08/02/21 13:38 08/02/21 13:45 Furosemide 40 Mg/4 Ml Vial IVPUSH 08/02/21 13:39 60 mg ONETIME ONE Administration Metoprolol Tartrate 50 mg 08/02/21 13:37 Metoprolol Tartrate 50 Mg Tab PO 08/02/21 13:38 ONETIME ONE Sodium Polystyrene Sulfonate 45 gm 08/02/21 11:04 08/02/21 11:40 Sodium Polystyrene Sulfonate 15 Gm/60 Ml Susp 60 Ml Bot PO 08/02/21 11:05 45 gm NOW ONE Administration - Re-Assessments/Exams Free Text/Narrative Re-Assessment/Exam: 08/02/21 13:44 No beds available. K+ now 5.9. Will give another NS liter and more furosemide. He has an appt to see Dr. Rossi tomorrow so if we can get his K+ to the low 5's we can send home on a low potassium diet. BP still high, will give amlodipine and hold Avapro. Departure - Departure Time of Disposition: 16:20 Disposition: Home, Self-Care 01 Condition: Fair Clinical Impression: Hyperkalemia CRF (chronic renal failure) Qualifiers: Chronic kidney disease stage: stage 3 (moderate) Chronic kidney disease stage 3 subtype: stage 3b (GFR 30-44) Qualified Code(s): N18.32 - Chronic kidney disease, stage 3b - Discharge Information *PRESCRIPTION DRUG MONITORING PROGRAM REVIEWED*: Not Applicable *COPY OF PRESCRIPTION DRUG MONITORING REPORT IN PATIENT TRACEY: Not Applicable Instructions: Hyperkalemia Referrals: Richard Rossi MD [Primary Care Provider] - Forms: ED Department Discharge Additional Instructions: Eat only foods that are low in potassium. Hold your irbisartan(Avapro). We gave you amlodipine 10 mg in the ER today, discuss with your doctor tomorrow what he would like you on for your BP. Continue your other meds as before. Sepsis Event Note (ED) - Focused Exam Vital Signs: Vital Signs Temp Pulse Resp BP BP Pulse Ox 08/02/21 16:09 92 12 181/112 H 95 08/02/21 14:11 183/101 H 08/02/21 13:43 181/97 H 08/02/21 12:04 78 14 184/94 H 96 08/02/21 11:30 36.7 C 83 10 L 177/94 H 97 08/02/21 11:21 36.7 C 83 10 L 177/94 H 97 - My Orders Last 24 Hours: My Active Orders 08/02/21 11:00 Cardiac Monitoring [RC] .As Directed 08/02/21 11:02 EKG 12 Lead [EK] Routine 08/02/21 11:15 Sodium Chloride 0.9% [Normal Saline] 1,000 ml IV ASDIRECTED 08/02/21 11:45 Furosemide [Lasix] 40 mg IVPUSH DAILY 08/02/21 13:45 Sodium Chloride 0.9% [Normal Saline] 1,000 ml IV ASDIRECTED - Assessment/Plan Last 24 Hours: My Active Orders 08/02/21 11:00 Cardiac Monitoring [RC] .As Directed 08/02/21 11:02 EKG 12 Lead [EK] Routine 08/02/21 11:15 Sodium Chloride 0.9% [Normal Saline] 1,000 ml IV ASDIRECTED 08/02/21 11:45 Furosemide [Lasix] 40 mg IVPUSH DAILY 08/02/21 13:45 Sodium Chloride 0.9% [Normal Saline] 1,000 ml IV ASDIRECTED
[2021-08-02] MEDS: Sodium Chloride 0.9% 1,000 ML IV SCH ×2 (11:27→13:45)
[2021-08-02] MEDS ORDERED: Furosemide 40 MG/4 ML VIAL IVPUSH SCH (11:45)
[2021-08-02] MEDS ORDERED: Metoprolol Tartrate 50 MG Tab PO ONE (13:37)
[2021-08-02] MEDS ORDERED: Furosemide 40 MG/4 ML VIAL IVPUSH ONE (13:38)
[2021-08-02] MEDS ORDERED: amLODIPine 5 MG Tab PO ONE (13:40)
[2021-08-02] MEDS ORDERED: Sodium Chloride 0.9% 1,000 ML IV SCH (13:45)
[2021-08-02 16:10] VITALS: BP 181/112; PULSE 92
== END 2021-08-02 16:21 | disposition home or self-care (01) ==
LOC: JP.ED 10:59
DX: E87.5 Hyperkalemia (principal); I12.9 Hypertensive chronic kidney disease with stage 1 through stage 4 chronic kidney disease, or unspecified chronic kidney disease; N18.32 Chronic kidney disease, stage 3b; E78.00 Pure hypercholesterolemia, unspecified; I25.2 Old myocardial infarction; M10.9 Gout, unspecified; Z88.0 Allergy status to penicillin; Z88.8 Allergy status to other drugs, medicaments and biological substances; Z79.899 Other long term (current) drug therapy; Z79.82 Long term (current) use of aspirin
CPT/HCPCS: 36415; 84132; 93005; 96374; 99283; A9270; J1940; J7030

== ENCOUNTER 2022-02-18 20:59 | Emergency (ER) | payer MEDICARE, BC ==
[2022-02-18] MEDS ORDERED: Sodium Chloride 0.9% 10 ML Syringe FLUSH PRN (21:14)
[2022-02-18] MEDS ORDERED: Nitroglycerin 0.4 MG Tab.SL SL ONE (21:35)
[2022-02-18 22:40] VITALS: PULSE 105
[2022-02-18] MEDS ORDERED: Calcium Carbonate 500 MG Tab.Chew PO ONE (23:50)
[2022-02-19 00:10] VITALS: BP 172/92
== END 2022-02-19 01:43 | disposition home or self-care (01) ==
LOC: JP.ED 20:59
DX: R00.0 Tachycardia, unspecified (principal); I25.10 Atherosclerotic heart disease of native coronary artery without angina pectoris; E78.00 Pure hypercholesterolemia, unspecified; I10 Essential (primary) hypertension; I25.2 Old myocardial infarction; M10.9 Gout, unspecified; Z88.8 Allergy status to other drugs, medicaments and biological substances; Z88.0 Allergy status to penicillin; Z88.1 Allergy status to other antibiotic agents; Z79.899 Other long term (current) drug therapy; Z79.82 Long term (current) use of aspirin; Z95.0 Presence of cardiac pacemaker
CPT/HCPCS: 36415; 71045; 80053; 83605; 84484; 85025; 93005; 99283; 99285-25; A9270-GY

== ENCOUNTER 2022-05-28 19:42 | Emergency (ER) | payer MEDICARE, BC ==
[2022-05-28] MEDS ORDERED: Morphine 4 MG/ML Syringe IM ONE (20:50)
[2022-05-28] MEDS ORDERED: Oxybutynin 5 MG Tab PO SCH (21:30)
[2022-05-28 21:44] VITALS: BP 195/90; PULSE 78
== END 2022-05-28 22:26 | disposition home or self-care (01) ==
LOC: JP.ED 19:42
DX: N32.89 Other specified disorders of bladder (principal); R33.9 Retention of urine, unspecified; I25.10 Atherosclerotic heart disease of native coronary artery without angina pectoris; E78.00 Pure hypercholesterolemia, unspecified; I10 Essential (primary) hypertension; I25.2 Old myocardial infarction; M10.9 Gout, unspecified; Z95.0 Presence of cardiac pacemaker; Z88.1 Allergy status to other antibiotic agents; Z88.0 Allergy status to penicillin; Z88.2 Allergy status to sulfonamides
CPT/HCPCS: 74176; 96372; 99282; 99284-25; A9270-GY; J2270

== ENCOUNTER 2022-07-18 08:04 | Emergency (ER) | payer MEDICARE, BC ==
[2022-07-18 09:34] VITALS: BP 170/95; PULSE 78
[2022-07-18 09:39] LABS: TROPONIN I HIGH SENSITIVITY 22.5 pg/mL (<=60.3)
== END 2022-07-18 10:04 | disposition home or self-care (01) ==
LOC: JP.ED 08:04
DX: R00.0 Tachycardia, unspecified (principal); I25.10 Atherosclerotic heart disease of native coronary artery without angina pectoris; I10 Essential (primary) hypertension; I25.2 Old myocardial infarction; Z88.8 Allergy status to other drugs, medicaments and biological substances; Z88.1 Allergy status to other antibiotic agents; Z88.0 Allergy status to penicillin; Z88.2 Allergy status to sulfonamides; Z79.899 Other long term (current) drug therapy; Z79.82 Long term (current) use of aspirin; Z86.16 Personal history of COVID-19; Z90.49 Acquired absence of other specified parts of digestive tract; Z87.891 Personal history of nicotine dependence
CPT/HCPCS: 36415; 80048; 84484; 85025; 99284

== ENCOUNTER 2022-09-24 12:19 | Emergency (ER) | payer MEDICARE, BC ==
[2022-09-24] MEDS ORDERED: Sodium Chloride 0.9% 10 ML Syringe FLUSH PRN (12:47)
[2022-09-24] MEDS ORDERED: Magnesium Sulfate/Water 2 GM in Premix Bag 1 BAG IV ONE (13:54)
[2022-09-24 16:31] VITALS: BP 206/105; PULSE 89
== END 2022-09-24 17:26 | disposition home or self-care (01) ==
LOC: JP.ED 12:19
DX: I25.5 Ischemic cardiomyopathy (principal); J44.9 Chronic obstructive pulmonary disease, unspecified; I25.10 Atherosclerotic heart disease of native coronary artery without angina pectoris; E78.00 Pure hypercholesterolemia, unspecified; I10 Essential (primary) hypertension; Z88.8 Allergy status to other drugs, medicaments and biological substances; Z88.1 Allergy status to other antibiotic agents; Z88.0 Allergy status to penicillin; Z88.2 Allergy status to sulfonamides; Z79.899 Other long term (current) drug therapy; Z86.16 Personal history of COVID-19; Z90.49 Acquired absence of other specified parts of digestive tract; Z87.891 Personal history of nicotine dependence
CPT/HCPCS: 36415; 71045; 80048; 83735; 83880; 84439; 84443; 84484; 85025; 93005; 96365; 96366; 99285; J3475; J3490

== ENCOUNTER 2022-10-13 18:34 | Emergency (ER) | payer MEDICARE, BC ==
[2022-10-13] MEDS ORDERED: Sodium Chloride 0.9% 10 ML Syringe FLUSH PRN (18:37)
[2022-10-13 19:15] LABS: ESTIMATED GFR 22 mL/min (>60); TROPONIN I HIGH SENSITIVITY 22.3 pg/mL (<=60.3)
[2022-10-13] MEDS ORDERED: LORazepam 0.5 MG Tab PO ONE ×2 (19:18→23:06)
[2022-10-13] MEDS ORDERED: Labetalol 100 MG in Sodium Chloride 0.9% 80 ML IV SCH (19:45)
[2022-10-13] MEDS ORDERED: Labetalol 100 MG/20 ML MDV IV ONE ×2 (21:04→21:30)
[2022-10-13] MEDS ORDERED: Labetalol 20 MG/4 ML Syringe ONE ×2 (21:11→21:19)
[2022-10-13] MEDS ORDERED: Sodium Chloride 0.9% 100 ML IV SCH ×2 (21:15→21:45)
[2022-10-13] MEDS ORDERED: SODIUM CHLORIDE 0.9% IV SCH (21:45)
[2022-10-13] MEDS ORDERED: LABETALOL IV SCH (21:45)
[2022-10-13] MEDS: hydrALAZINE 20 MG/ML SDV IVPUSH SCH ×2 (21:50→22:29)
[2022-10-13] MEDS ORDERED: Labetalol 300 MG in Sodium Chloride 0.9% 240 ML IV SCH (22:00)
[2022-10-13 23:50] VITALS: BP 140/84; PULSE 100
[2022-10-14] MEDS: hydrALAZINE 20 MG/ML SDV IVPUSH SCH ×2 (00:30→00:42)
== END 2022-10-14 00:59 ==
LOC: JP.ED 18:34
DX: I25.5 Ischemic cardiomyopathy (principal); I16.1 Hypertensive emergency; I12.9 Hypertensive chronic kidney disease with stage 1 through stage 4 chronic kidney disease, or unspecified chronic kidney disease; N18.4 Chronic kidney disease, stage 4 (severe); I25.10 Atherosclerotic heart disease of native coronary artery without angina pectoris; E78.00 Pure hypercholesterolemia, unspecified; I25.2 Old myocardial infarction; M10.9 Gout, unspecified; R00.0 Tachycardia, unspecified; Z95.810 Presence of automatic (implantable) cardiac defibrillator; Z86.16 Personal history of COVID-19; Z88.8 Allergy status to other drugs, medicaments and biological substances; Z88.0 Allergy status to penicillin; Z88.1 Allergy status to other antibiotic agents; Z88.2 Allergy status to sulfonamides; Z79.82 Long term (current) use of aspirin; Z79.01 Long term (current) use of anticoagulants; Z79.899 Other long term (current) drug therapy; Z20.822 Contact with and (suspected) exposure to COVID-19
CPT/HCPCS: 36415; 71045; 80053; 83735; 83880; 84484; 85025; 93005; 96365; 96366; 96367; 96375; 99285; A9270; J0360; J3490; J7050; U0002

== ENCOUNTER 2022-10-19 15:21 | Emergency (ER) | payer MEDICARE, BC ==
[2022-10-19 15:51] VITALS: BP 196/107; PULSE 99
== END 2022-10-19 18:50 | disposition home or self-care (01) ==
LOC: JP.ED 15:21
DX: G47.33 Obstructive sleep apnea (adult) (pediatric) (principal); I11.9 Hypertensive heart disease without heart failure; I12.9 Hypertensive chronic kidney disease with stage 1 through stage 4 chronic kidney disease, or unspecified chronic kidney disease; N18.32 Chronic kidney disease, stage 3b; I25.10 Atherosclerotic heart disease of native coronary artery without angina pectoris; E78.00 Pure hypercholesterolemia, unspecified; I25.2 Old myocardial infarction; Z86.16 Personal history of COVID-19; Z95.1 Presence of aortocoronary bypass graft; Z95.0 Presence of cardiac pacemaker; Z88.0 Allergy status to penicillin; Z88.1 Allergy status to other antibiotic agents; Z88.8 Allergy status to other drugs, medicaments and biological substances; Z79.82 Long term (current) use of aspirin; Z79.899 Other long term (current) drug therapy; Z87.891 Personal history of nicotine dependence
CPT/HCPCS: 36415; 83605; 83880; 84145; 85379; 86140; 99283

== ENCOUNTER 2022-11-30 15:11 | Emergency (ER) | payer MEDICARE, BC ==
[2022-11-30 16:03] LABS: ESTIMATED GFR 21 mL/min (>60)
[2022-11-30 16:14] LABS: TROPONIN I HIGH SENSITIVITY 17.8 pg/mL (<=60.3)
[2022-11-30 16:49] VITALS: BP 181/90; PULSE 79
== END 2022-11-30 18:31 | disposition home or self-care (01) ==
LOC: JP.ED 15:11
DX: R07.89 Other chest pain (principal); I11.9 Hypertensive heart disease without heart failure; I12.0 Hypertensive chronic kidney disease with stage 5 chronic kidney disease or end stage renal disease; N18.5 Chronic kidney disease, stage 5; I25.10 Atherosclerotic heart disease of native coronary artery without angina pectoris; E78.00 Pure hypercholesterolemia, unspecified; I25.2 Old myocardial infarction; M10.9 Gout, unspecified; Z95.810 Presence of automatic (implantable) cardiac defibrillator; Z88.0 Allergy status to penicillin; Z88.1 Allergy status to other antibiotic agents; Z79.899 Other long term (current) drug therapy; Z79.82 Long term (current) use of aspirin; Z87.891 Personal history of nicotine dependence
CPT/HCPCS: 36415; 80048; 83735; 83880; 84100; 84145; 84484; 85025; 85651; 93005; 99285

== ENCOUNTER 2023-01-26 08:11 | Emergency (ER) | payer MEDICARE, BC ==
[2023-01-26 09:23] VITALS: BP 157/86; PULSE 99
[2023-01-26] MEDS ORDERED: Dexamethasone 4 MG/ML SDV PO STA (10:00)
[2023-01-26] MEDS ORDERED: Penicillin G Benzathine 1,200,000 Units/2 ML Syringe IM ONE (10:01)
== END 2023-01-26 11:08 | disposition home or self-care (01) ==
LOC: JP.ED 08:11
DX: J02.0 Streptococcal pharyngitis (principal); I25.10 Atherosclerotic heart disease of native coronary artery without angina pectoris; E78.00 Pure hypercholesterolemia, unspecified; I10 Essential (primary) hypertension; I25.2 Old myocardial infarction; M10.9 Gout, unspecified; E66.9 Obesity, unspecified; Z68.31 Body mass index [BMI] 31.0-31.9, adult; Z88.1 Allergy status to other antibiotic agents; Z95.0 Presence of cardiac pacemaker; Z88.8 Allergy status to other drugs, medicaments and biological substances; Z79.899 Other long term (current) drug therapy; Z79.82 Long term (current) use of aspirin; Z87.891 Personal history of nicotine dependence
CPT/HCPCS: 87880; 96372; 99283; J0561; J8540

== ENCOUNTER 2023-03-08 07:25 | Day surgery (SDC) | payer MEDICARE, BC ==
[2023-03-08] MEDS ORDERED: fentaNYL 100 MCG/2 ML SDV ONE (08:02)
[2023-03-08] MEDS ORDERED: Propofol 200 MG/20 ML SDV ONE (08:02)
[2023-03-08] MEDS ORDERED: Sodium Chloride 0.9% 1,000 ML IV SCH (08:15)
[2023-03-08 11:17] VITALS: BP 132/65; PULSE 80
== END 2023-03-08 11:35 | disposition home or self-care (01) ==
LOC: JP.SDS 07:25
PROVIDERS: ATTEND Surgery
DX: Z12.11 Encounter for screening for malignant neoplasm of colon (principal); D12.3 Benign neoplasm of transverse colon; K57.30 Diverticulosis of large intestine without perforation or abscess without bleeding; I25.10 Atherosclerotic heart disease of native coronary artery without angina pectoris; K21.9 Gastro-esophageal reflux disease without esophagitis; E78.5 Hyperlipidemia, unspecified; N18.30 Chronic kidney disease, stage 3 unspecified; I25.5 Ischemic cardiomyopathy; Z88.2 Allergy status to sulfonamides; Z88.1 Allergy status to other antibiotic agents; Z79.899 Other long term (current) drug therapy; Z95.1 Presence of aortocoronary bypass graft
CPT/HCPCS: 45380; 88305; J2704; J3010; J7030

== ENCOUNTER 2023-06-24 14:33 | Emergency (ER) | payer MEDICARE, BC ==
[2023-06-24] MEDS ORDERED: Sodium Chloride 0.9% 10 ML Syringe FLUSH PRN (16:18)
[2023-06-24 17:03] LABS: BASOPHILS ABSOLUTE AUTO 0.06 K/uL (0.00-0.10); BASOPHILS PERCENT AUTO 0.3 % (0.1-1.3); EOSINOPHILS ABSOLUTE AUTO 0.11 K/uL (0.00-0.40); EOSINOPHILS PERCENT AUTO 0.6 % (0.0-5.4); HEMATOCRIT 40.6 % (38.4-49.7); HEMOGLOBIN 14.3 g/dL (12.9-16.9); IMMATURE GRAN ABSOLUTE AUTO 0.14 K/uL (0.00-0.23); IMMATURE GRAN PERCENT AUTO 0.8 % (0.0-0.7); LYMPHOCYTES ABSOLUTE AUTO 0.74 K/uL (0.8-3.3); LYMPHOCYTES PERCENT AUTO 4.1 % (11.4-47.7); MEAN CORPUSCULAR HEMOGLOBIN 33.6 pg (31.6-35.5); MEAN CORPUSCULAR HGB CONC 35.2 g/dL (31.6-35.5); MEAN CORPUSCULAR VOLUME 95.3 fL (81.4-99.0); MONOCYTES PERCENT AUTO 11.7 % (3.3-12.6); NEUTROPHILS ABSOLUTE AUTO 14.86 K/uL (1.0-7.6); NEUTROPHILS PERCENT AUTO 82.5 % (40.0-78.1); PLATELET COUNT,PLT 198 K/uL (130-375); RED BLOOD CELL COUNT 4.26 M/uL (4.14-5.76)
[2023-06-24 17:22] LABS: A/G RATIO 1.2 (1.2-2.2); ALANINE AMINOTRANSFERASE,ALT 40 U/L (12-78); ALBUMIN 3.6 g/dL (3.4-5.0); ALKALINE PHOSPHATASE 116 U/L (46-116); ASPARTATE AMNIOTRANSFERASE,AST 25 U/L (15-37); BILIRUBIN TOTAL 1.6 mg/dL (0.2-1.0); BLOOD UREA NITROGEN,BUN 59 mg/dL (7-18); C-REACTIVE PROTEIN 0.34 mg/dL (0.0-0.3); CALCIUM 9.2 mg/dL (8.5-10.1); CARBON DIOXIDE,CO2 22 mmol/L (21-32); CHLORIDE,CL 105 mmol/L (100-108); ESTIMATED GFR 17 mL/min (>60); GLUCOSE RANDOM 128 mg/dL (74-106); POTASSIUM,K 4.9 mmol/L (3.6-5.2); PROTEIN TOTAL,TP 6.5 g/dL (6.4-8.2); SODIUM,NA 137 mmol/L (140-148)
[2023-06-24 17:32] LABS: LACTIC ACID 1.3 mmol/L (0.4-2.0)
[2023-06-24 17:40] LABS: APPEARANCE,URINE CLEAR (CLEAR); BILIRUBIN,URINE NEGATIVE (NEGATIVE); COLOR,URINE YELLOW (YELLOW); GLUCOSE,URINE NEGATIVE (NEGATIVE); KETONES,URINE NEGATIVE (NEGATIVE); LEUKOCYTE ESTERASE,URINE NEGATIVE (NEGATIVE); NITRITE,URINE NEGATIVE (NEGATIVE); OCCULT BLOOD,URINE TRACE-INTACT (NEGATIVE); PROTEIN,URINE >=300 mg/dL (NEGATIVE); UROBILINOGEN,URINE 0.2 EU/dL (0.2-1.0)
[2023-06-24 17:42] LABS: ANION GAP 14.9 mmol/L (5.0-14.0)
[2023-06-24 17:43] LABS: CREATININE 3.5 mg/dL (0.8-1.3)
[2023-06-24 17:44] LABS: MAGNESIUM 1.9 mg/dL (1.8-2.4); PHOSPHORUS 1.8 mg/dL (2.5-4.9)
[2023-06-24 17:50] LABS: LYME AB IgG Negative (Negative); LYME AB IgM Negative (Negative)
[2023-06-24 18:15] LABS: AMORPHOUS SEDIMENT,URINE NOT SEEN; BACTERIA,URINE FEW; EPITHELIAL CELLS,URINE FEW; MUCUS,URINE NOT SEEN; WBC,URINE 0-5 (0-5)
[2023-06-24 18:47] VITALS: BP 169/87; PULSE 113
[2023-07-01 18:12] LABS: A. PHAGOCYTOPHILUM IGG Negative (Neg:<1:64); A. PHAGOCYTOPHILUM IGM Negative (Neg:<1:20)
== END 2023-06-24 19:25 | disposition home or self-care (01) ==
LOC: JP.ED 14:33
DX: E86.0 Dehydration (principal); J44.9 Chronic obstructive pulmonary disease, unspecified; I12.9 Hypertensive chronic kidney disease with stage 1 through stage 4 chronic kidney disease, or unspecified chronic kidney disease; N18.4 Chronic kidney disease, stage 4 (severe); I25.5 Ischemic cardiomyopathy; I25.810 Atherosclerosis of coronary artery bypass graft(s) without angina pectoris; I25.2 Old myocardial infarction; E78.00 Pure hypercholesterolemia, unspecified; M10.9 Gout, unspecified; E66.9 Obesity, unspecified; Z95.810 Presence of automatic (implantable) cardiac defibrillator; Z79.82 Long term (current) use of aspirin; Z79.899 Other long term (current) drug therapy; Z88.1 Allergy status to other antibiotic agents; Z88.2 Allergy status to sulfonamides; Z88.8 Allergy status to other drugs, medicaments and biological substances; Z87.891 Personal history of nicotine dependence; Z20.822 Contact with and (suspected) exposure to COVID-19
CPT/HCPCS: 36415; 71250; 74176; 80053; 81001; 83605; 83735; 84100; 85025; 86140; 86618; 86666; 87040; 87086; 93005; 99285; J3490; U0002; 93010

== ENCOUNTER 2023-12-16 08:52 | Emergency (ER) | payer MEDICARE, BC ==
[2023-12-16 09:01] VITALS: PULSE 87
[2023-12-16] MEDS ORDERED: Sodium Chloride 0.9% 10 ML Syringe FLUSH PRN (09:20)
[2023-12-16] MEDS ORDERED: Morphine 4 MG/ML Syringe IVPUSH PRN (09:20)
[2023-12-16 09:44] LABS: BASOPHILS ABSOLUTE AUTO 0.08 K/uL (0.00-0.10); BASOPHILS PERCENT AUTO 0.7 % (0.1-1.3); EOSINOPHILS ABSOLUTE AUTO 0.35 K/uL (0.00-0.40); EOSINOPHILS PERCENT AUTO 3.2 % (0.0-5.4); HEMATOCRIT 40.2 % (38.4-49.7); HEMOGLOBIN 13.9 g/dL (12.9-16.9); IMMATURE GRAN ABSOLUTE AUTO 0.06 K/uL (0.00-0.23); IMMATURE GRAN PERCENT AUTO 0.5 % (0.0-0.7); LYMPHOCYTES ABSOLUTE AUTO 1.83 K/uL (0.8-3.3); LYMPHOCYTES PERCENT AUTO 16.6 % (11.4-47.7); MEAN CORPUSCULAR HEMOGLOBIN 33.3 pg (31.6-35.5); MEAN CORPUSCULAR HGB CONC 34.6 g/dL (31.6-35.5); MEAN CORPUSCULAR VOLUME 96.2 fL (81.4-99.0); MONOCYTES ABSOLUTE AUTO 1.14 K/uL (0.20-0.90); MONOCYTES PERCENT AUTO 10.3 % (3.3-12.6); NEUTROPHILS ABSOLUTE AUTO 7.56 K/uL (1.0-7.6); NEUTROPHILS PERCENT AUTO 68.7 % (40.0-78.1); PLATELET COUNT,PLT 177 K/uL (130-375); RED BLOOD CELL COUNT 4.18 M/uL (4.14-5.76)
[2023-12-16] MEDS: Aspirin 81 MG Tab.Chew PO ONE (09:51)
[2023-12-16] MEDS: Nitroglycerin 0.4 MG Tab.SL SL PRN (09:51)
[2023-12-16 09:53] VITALS: BP 198/101
[2023-12-16 10:14] LABS: A/G RATIO 1.1 (1.2-2.2); ALANINE AMINOTRANSFERASE,ALT 34 U/L (12-78); ALBUMIN 3.4 g/dL (3.4-5.0); ALKALINE PHOSPHATASE 116 U/L (46-116); ASPARTATE AMNIOTRANSFERASE,AST 23 U/L (15-37); BILIRUBIN TOTAL 1.5 mg/dL (0.2-1.0); BLOOD UREA NITROGEN,BUN 51 mg/dL (7-18); CALCIUM 8.9 mg/dL (8.5-10.1); CARBON DIOXIDE,CO2 24 mmol/L (21-32); CHLORIDE,CL 105 mmol/L (100-108); ESTIMATED GFR 17 mL/min (>60); GLUCOSE RANDOM 106 mg/dL (74-106); POTASSIUM,K 5.4 mmol/L (3.6-5.2); PRO B-TYPE NATRIUR PEPT,BNPPRO 956 pg/mL (5-450); PROTEIN TOTAL,TP 6.5 g/dL (6.4-8.2); SODIUM,NA 139 mmol/L (140-148); TROPONIN I HIGH SENSITIVITY 14.5 pg/mL (<=60.3)
[2023-12-16 10:28] LABS: ANION GAP 15.4 mmol/L (5.0-14.0)
[2023-12-16 10:34] LABS: CREATININE 3.5 mg/dL (0.8-1.3)
[2023-12-16] MEDS: Alum Hydrox/Mag Hydrox/Simeth 15 ML, Lidocaine 2% 15 ML PO ONE ×2 (11:33)
== END 2023-12-16 11:58 | disposition home or self-care (01) ==
LOC: JP.ED 08:52
DX: K21.9 Gastro-esophageal reflux disease without esophagitis (principal); I25.10 Atherosclerotic heart disease of native coronary artery without angina pectoris; E78.00 Pure hypercholesterolemia, unspecified; I10 Essential (primary) hypertension; I25.2 Old myocardial infarction; J44.9 Chronic obstructive pulmonary disease, unspecified; E66.9 Obesity, unspecified; R06.02 Shortness of breath; M19.90 Unspecified osteoarthritis, unspecified site; Z79.82 Long term (current) use of aspirin; Z79.899 Other long term (current) drug therapy; Z88.1 Allergy status to other antibiotic agents; Z88.2 Allergy status to sulfonamides; Z88.8 Allergy status to other drugs, medicaments and biological substances
CPT/HCPCS: 36415; 71045; 80053; 83605; 83880; 84484; 85025; 93005; 93010; 99284; 99285; A9270

== ENCOUNTER 2023-12-25 09:19 | Emergency (ER) | payer MEDICARE, BC ==
[2023-12-25] MEDS ORDERED: Sodium Chloride 0.9% 10 ML Syringe FLUSH PRN (09:26)
[2023-12-25] MEDS ORDERED: Nitroglycerin 0.4 MG Tab.SL SL ONE (09:29)
[2023-12-25 09:39] LABS: EOSINOPHILS ABSOLUTE AUTO 0.36 K/uL (0.00-0.40); EOSINOPHILS PERCENT AUTO 3.5 % (0.0-5.4); HEMATOCRIT 40.6 % (38.4-49.7); HEMOGLOBIN 13.8 g/dL (12.9-16.9); IMMATURE GRAN ABSOLUTE AUTO 0.07 K/uL (0.00-0.23); IMMATURE GRAN PERCENT AUTO 0.7 % (0.0-0.7); LYMPHOCYTES ABSOLUTE AUTO 1.87 K/uL (0.8-3.3); LYMPHOCYTES PERCENT AUTO 18.2 % (11.4-47.7); MEAN CORPUSCULAR HEMOGLOBIN 32.9 pg (31.6-35.5); MEAN CORPUSCULAR VOLUME 96.9 fL (81.4-99.0); MONOCYTES ABSOLUTE AUTO 1.35 K/uL (0.20-0.90); MONOCYTES PERCENT AUTO 13.2 % (3.3-12.6); NEUTROPHILS ABSOLUTE AUTO 6.51 K/uL (1.0-7.6); NEUTROPHILS PERCENT AUTO 63.4 % (40.0-78.1); PLATELET COUNT,PLT 202 K/uL (130-375); RED BLOOD CELL COUNT 4.19 M/uL (4.14-5.76); WHITE BLOOD CELL COUNT,WBC 10.3 K/uL (3.2-11.0)
[2023-12-25 09:59] LABS: INR 0.9; PROTHROMBIN TIME 9.6 sec (9.2-10.6)
[2023-12-25 10:08] LABS: ANION GAP 10.1 mmol/L (5.0-14.0); CREATININE 3.2 mg/dL (0.8-1.3); EST CRCL DRUG DOSING (CG) 18.11 mL/min; POTASSIUM,K 4.9 mmol/L (3.6-5.2); TROPONIN I HIGH SENSITIVITY 14.5 pg/mL (<=60.3)
[2023-12-25 10:29] LABS: A/G RATIO 1.1 (1.2-2.2); ALBUMIN 3.4 g/dL (3.4-5.0); BILIRUBIN DIRECT 0.3 mg/dL (0.0-0.2); BILIRUBIN INDIRECT 1.2; BILIRUBIN TOTAL 1.5 mg/dL (0.2-1.0); PROTEIN TOTAL,TP 6.6 g/dL (6.4-8.2)
[2023-12-25 10:56] VITALS: BP 190/98; PULSE 81
== END 2023-12-25 11:24 | disposition home or self-care (01) ==
LOC: JP.ED 09:19
DX: J44.9 Chronic obstructive pulmonary disease, unspecified (principal); R07.89 Other chest pain; N18.4 Chronic kidney disease, stage 4 (severe); G47.33 Obstructive sleep apnea (adult) (pediatric); I25.5 Ischemic cardiomyopathy; Z95.1 Presence of aortocoronary bypass graft; R06.02 Shortness of breath; I10 Essential (primary) hypertension; I25.2 Old myocardial infarction; I25.810 Atherosclerosis of coronary artery bypass graft(s) without angina pectoris; E66.9 Obesity, unspecified; K21.9 Gastro-esophageal reflux disease without esophagitis; E78.00 Pure hypercholesterolemia, unspecified; Z88.1 Allergy status to other antibiotic agents; Z88.2 Allergy status to sulfonamides; Z88.8 Allergy status to other drugs, medicaments and biological substances; Z79.899 Other long term (current) drug therapy; Z79.82 Long term (current) use of aspirin; Z79.2 Long term (current) use of antibiotics; Z90.49 Acquired absence of other specified parts of digestive tract; Z86.16 Personal history of COVID-19; Z68.29 Body mass index [BMI] 29.0-29.9, adult
CPT/HCPCS: 36415; 71045; 80048; 80076; 83735; 83880; 84484; 85025; 85610; 85730; 93005; 93010; 99283; 99285; A9270

== ENCOUNTER 2023-12-29 01:10 | Emergency (ER) | payer MEDICARE, BC ==
[2023-12-29] MEDS ORDERED: Nitroglycerin 0.4 MG Tab.SL SL ONE (01:34)
[2023-12-29 01:35] LABS: BASOPHILS ABSOLUTE AUTO 0.09 K/uL (0.00-0.10); BASOPHILS PERCENT AUTO 0.8 % (0.1-1.3); EOSINOPHILS PERCENT AUTO 3.7 % (0.0-5.4); HEMATOCRIT 39.4 % (38.4-49.7); HEMOGLOBIN 13.5 g/dL (12.9-16.9); IMMATURE GRAN ABSOLUTE AUTO 0.04 K/uL (0.00-0.23); IMMATURE GRAN PERCENT AUTO 0.4 % (0.0-0.7); LYMPHOCYTES ABSOLUTE AUTO 2.07 K/uL (0.8-3.3); LYMPHOCYTES PERCENT AUTO 19.1 % (11.4-47.7); MEAN CORPUSCULAR HEMOGLOBIN 33.3 pg (31.6-35.5); MEAN CORPUSCULAR HGB CONC 34.3 g/dL (31.6-35.5); MEAN CORPUSCULAR VOLUME 97.3 fL (81.4-99.0); MONOCYTES ABSOLUTE AUTO 1.29 K/uL (0.20-0.90); MONOCYTES PERCENT AUTO 11.9 % (3.3-12.6); NEUTROPHILS ABSOLUTE AUTO 6.96 K/uL (1.0-7.6); NEUTROPHILS PERCENT AUTO 64.1 % (40.0-78.1); PLATELET COUNT,PLT 239 K/uL (130-375); RED BLOOD CELL COUNT 4.05 M/uL (4.14-5.76); WHITE BLOOD CELL COUNT,WBC 10.9 K/uL (3.2-11.0)
[2023-12-29 01:47] LABS: A/G RATIO 1.1 (1.2-2.2); ALANINE AMINOTRANSFERASE,ALT 32 U/L (12-78); ALBUMIN 3.4 g/dL (3.4-5.0); ALKALINE PHOSPHATASE 121 U/L (46-116); ANION GAP 11.9 mmol/L (5.0-14.0); ASPARTATE AMNIOTRANSFERASE,AST 20 U/L (15-37); BILIRUBIN TOTAL 1.1 mg/dL (0.2-1.0); BLOOD UREA NITROGEN,BUN 42 mg/dL (7-18); CALCIUM 8.7 mg/dL (8.5-10.1); CARBON DIOXIDE,CO2 23 mmol/L (21-32); CHLORIDE,CL 105 mmol/L (100-108); ESTIMATED GFR 16 mL/min (>60); GLUCOSE RANDOM 124 mg/dL (74-106); POTASSIUM,K 3.9 mmol/L (3.6-5.2); PROTEIN TOTAL,TP 6.6 g/dL (6.4-8.2); SODIUM,NA 140 mmol/L (140-148); TROPONIN I HIGH SENSITIVITY 15.8 pg/mL (<=60.3)
[2023-12-29 01:49] LABS: CREATININE 3.6 mg/dL (0.8-1.3)
[2023-12-29 02:18] VITALS: BP 189/95; PULSE 90
== END 2023-12-29 02:18 | disposition home or self-care (01) ==
LOC: JP.ED 01:10
DX: R07.89 Other chest pain (principal); I12.9 Hypertensive chronic kidney disease with stage 1 through stage 4 chronic kidney disease, or unspecified chronic kidney disease; N18.4 Chronic kidney disease, stage 4 (severe); E78.00 Pure hypercholesterolemia, unspecified; I25.810 Atherosclerosis of coronary artery bypass graft(s) without angina pectoris; I25.2 Old myocardial infarction; Z95.0 Presence of cardiac pacemaker; K21.9 Gastro-esophageal reflux disease without esophagitis; E66.9 Obesity, unspecified; Z86.16 Personal history of COVID-19; Z95.5 Presence of coronary angioplasty implant and graft; Z90.49 Acquired absence of other specified parts of digestive tract; Z88.2 Allergy status to sulfonamides; Z88.1 Allergy status to other antibiotic agents; Z88.5 Allergy status to narcotic agent; Z88.8 Allergy status to other drugs, medicaments and biological substances; Z79.82 Long term (current) use of aspirin; Z79.899 Other long term (current) drug therapy
CPT/HCPCS: 36415; 80053; 80307; 83690; 84484; 85025; 93005; 99285; A9270; 93010

== ENCOUNTER 2024-03-11 15:28 | Emergency (ER) | payer MEDICARE, BC ==
[2024-03-11] MEDS: hydrALAZINE 25 MG Tab PO ONE (18:30)
[2024-03-11] MEDS: Labetalol 100 MG Tab PO ONE ×2 (19:09→20:00)
[2024-03-11] MEDS: ALPRAZolam 0.25 MG Tab PO ONE (20:16)
[2024-03-11 20:57] VITALS: BP 192/98; PULSE 80
[2024-03-11 21:24] LABS: BASOPHILS ABSOLUTE AUTO 0.08 K/uL (0.00-0.10); BASOPHILS PERCENT AUTO 0.7 % (0.1-1.3); EOSINOPHILS ABSOLUTE AUTO 0.64 K/uL (0.00-0.40); EOSINOPHILS PERCENT AUTO 5.8 % (0.0-5.4); HEMATOCRIT 39.6 % (38.4-49.7); HEMOGLOBIN 13.8 g/dL (12.9-16.9); IMMATURE GRAN ABSOLUTE AUTO 0.07 K/uL (0.00-0.23); IMMATURE GRAN PERCENT AUTO 0.6 % (0.0-0.7); LYMPHOCYTES ABSOLUTE AUTO 2.04 K/uL (0.8-3.3); LYMPHOCYTES PERCENT AUTO 18.4 % (11.4-47.7); MEAN CORPUSCULAR HEMOGLOBIN 33.1 pg (31.6-35.5); MEAN CORPUSCULAR HGB CONC 34.8 g/dL (31.6-35.5); MONOCYTES PERCENT AUTO 12.6 % (3.3-12.6); NEUTROPHILS ABSOLUTE AUTO 6.88 K/uL (1.0-7.6); NEUTROPHILS PERCENT AUTO 61.9 % (40.0-78.1); PLATELET COUNT,PLT 186 K/uL (130-375); RED BLOOD CELL COUNT 4.17 M/uL (4.14-5.76); WHITE BLOOD CELL COUNT,WBC 11.1 K/uL (3.2-11.0)
[2024-03-11 21:40] LABS: PROTHROMBIN TIME 10.4 sec (9.2-10.6)
[2024-03-11 21:53] LABS: A/G RATIO 1.2 (1.2-2.2); ALANINE AMINOTRANSFERASE,ALT 30 U/L (12-78); ALBUMIN 3.6 g/dL (3.4-5.0); ALKALINE PHOSPHATASE 125 U/L (46-116); ANION GAP 9.6 mmol/L (5.0-14.0); ASPARTATE AMNIOTRANSFERASE,AST 17 U/L (15-37); BILIRUBIN TOTAL 1.7 mg/dL (0.2-1.0); BLOOD UREA NITROGEN,BUN 56 mg/dL (7-18); CALCIUM 9.4 mg/dL (8.5-10.1); CARBON DIOXIDE,CO2 23 mmol/L (21-32); CHLORIDE,CL 107 mmol/L (100-108); EST CRCL DRUG DOSING (CG) 13.99 mL/min; ESTIMATED GFR 15 mL/min (>60); GLUCOSE RANDOM 104 mg/dL (74-106); MAGNESIUM 1.6 mg/dL (1.8-2.4); POTASSIUM,K 4.7 mmol/L (3.6-5.2); PRO B-TYPE NATRIUR PEPT,BNPPRO 859 pg/mL (5-450); PROTEIN TOTAL,TP 6.7 g/dL (6.4-8.2); SODIUM,NA 140 mmol/L (140-148); TROPONIN I HIGH SENSITIVITY 18.1 pg/mL (<=60.3)
[2024-03-11 21:54] LABS: C-REACTIVE PROTEIN < 0.50 mg/dL (<0.50); CREATININE 3.8 mg/dL (0.8-1.3)
== END 2024-03-11 22:29 | disposition home or self-care (01) ==
LOC: JP.ED 15:28
DX: I16.0 Hypertensive urgency (principal); I10 Essential (primary) hypertension; Z95.1 Presence of aortocoronary bypass graft; Z86.79 Personal history of other diseases of the circulatory system; Z86.16 Personal history of COVID-19; Z95.5 Presence of coronary angioplasty implant and graft; Z90.49 Acquired absence of other specified parts of digestive tract; Z87.891 Personal history of nicotine dependence; Z88.2 Allergy status to sulfonamides; Z88.1 Allergy status to other antibiotic agents; Z88.8 Allergy status to other drugs, medicaments and biological substances; Z79.82 Long term (current) use of aspirin; Z79.899 Other long term (current) drug therapy; Z79.51 Long term (current) use of inhaled steroids
CPT/HCPCS: 36415; 71045; 80053; 83605; 83735; 83880; 84484; 85025; 85610; 86140; 93005; 99285; A9270

== ENCOUNTER 2024-04-09 09:38 | Emergency (ER) | payer MEDICARE, BC ==
[2024-04-09 10:43] LABS: BASOPHILS ABSOLUTE AUTO 0.07 K/uL (0.00-0.10); BASOPHILS PERCENT AUTO 0.6 % (0.1-1.3); EOSINOPHILS ABSOLUTE AUTO 0.37 K/uL (0.00-0.40); EOSINOPHILS PERCENT AUTO 3.3 % (0.0-5.4); HEMATOCRIT 40.2 % (38.4-49.7); HEMOGLOBIN 14.2 g/dL (12.9-16.9); IMMATURE GRAN ABSOLUTE AUTO 0.07 K/uL (0.00-0.23); IMMATURE GRAN PERCENT AUTO 0.6 % (0.0-0.7); LYMPHOCYTES ABSOLUTE AUTO 1.95 K/uL (0.8-3.3); LYMPHOCYTES PERCENT AUTO 17.2 % (11.4-47.7); MEAN CORPUSCULAR HEMOGLOBIN 33.3 pg (31.6-35.5); MEAN CORPUSCULAR HGB CONC 35.3 g/dL (31.6-35.5); MEAN CORPUSCULAR VOLUME 94.1 fL (81.4-99.0); MONOCYTES ABSOLUTE AUTO 1.25 K/uL (0.20-0.90); NEUTROPHILS ABSOLUTE AUTO 7.63 K/uL (1.0-7.6); NEUTROPHILS PERCENT AUTO 67.3 % (40.0-78.1); PLATELET COUNT,PLT 187 K/uL (130-375); RED BLOOD CELL COUNT 4.27 M/uL (4.14-5.76); WHITE BLOOD CELL COUNT,WBC 11.3 K/uL (3.2-11.0)
[2024-04-09] MEDS: Metoprolol Tartrate 5 MG/5 ML SDV IVPUSH ONE (10:44)
[2024-04-09 10:46] VITALS: BP 204/106; PULSE 84
[2024-04-09 10:48] LABS: BASE EXCESS VENOUS -0.8 mm/L; BICARBONATE,VENOUS 22.1 mmol/L; CARBOXYHEMOGLOBIN 2.1 % (0.0-1.6); METHEMOGLOBIN 0.9 %; O2 SATURATION VENOUS 75.2; OXYHEMOGLOBIN 72.9 %; PCO2 VENOUS 32.9 mm/Hg; PH,VENOUS 7.442 (7.350-7.450); PO2 VENOUS 41.9 mm/Hg; TOTAL HEMOGLOBIN 14.5 g/dL (13.5-18.0)
[2024-04-09 11:14] LABS: ALANINE AMINOTRANSFERASE,ALT 28 U/L (12-78); ALBUMIN 3.4 g/dL (3.4-5.0); ALKALINE PHOSPHATASE 121 U/L (46-116); ASPARTATE AMNIOTRANSFERASE,AST 18 U/L (15-37); BILIRUBIN TOTAL 1.8 mg/dL (0.2-1.0); BLOOD UREA NITROGEN,BUN 52 mg/dL (7-18); CALCIUM 9.6 mg/dL (8.5-10.1); CARBON DIOXIDE,CO2 24 mmol/L (21-32); CHLORIDE,CL 104 mmol/L (100-108); EST CRCL DRUG DOSING (CG) 14.37 mL/min; ESTIMATED GFR 16 mL/min (>60); GLUCOSE RANDOM 110 mg/dL (74-106); POTASSIUM,K 5.7 mmol/L (3.6-5.2); PROTEIN TOTAL,TP 6.9 g/dL (6.4-8.2); SODIUM,NA 136 mmol/L (140-148); TROPONIN I HIGH SENSITIVITY 27.4 pg/mL (<=60.3)
[2024-04-09 11:16] LABS: PROTHROMBIN TIME 9.9 sec (9.2-10.6)
[2024-04-09 11:26] LABS: ANION GAP 13.7 mmol/L (5.0-14.0)
[2024-04-09 11:28] LABS: CREATININE 3.7 mg/dL (0.8-1.3)
[2024-04-09 11:30] LABS: TSH ULTRASENSITIVE 5.019 uIU/mL (0.358-3.740)
[2024-04-09 12:46] LABS: CORONAVIRUS COVID-19 NAA NEGATIVE (NEGATIVE); INFLUENZA A NAA NEGATIVE (NEGATIVE); INFLUENZA B NAA NEGATIVE (NEGATIVE); RESPIRATORY SYNCYTIAL VIR NAA NEGATIVE (NEGATIVE)
== END 2024-04-09 13:06 | disposition home or self-care (01) ==
LOC: JP.ED 09:38
DX: I11.0 Hypertensive heart disease with heart failure (principal); I50.9 Heart failure, unspecified; F41.9 Anxiety disorder, unspecified; I25.10 Atherosclerotic heart disease of native coronary artery without angina pectoris; E78.00 Pure hypercholesterolemia, unspecified; I25.2 Old myocardial infarction; J44.9 Chronic obstructive pulmonary disease, unspecified; K21.9 Gastro-esophageal reflux disease without esophagitis; E66.9 Obesity, unspecified; Z88.1 Allergy status to other antibiotic agents; Z88.2 Allergy status to sulfonamides; Z88.8 Allergy status to other drugs, medicaments and biological substances; Z79.899 Other long term (current) drug therapy; Z79.82 Long term (current) use of aspirin; Z86.19 Personal history of other infectious and parasitic diseases; Z86.16 Personal history of COVID-19; Z90.49 Acquired absence of other specified parts of digestive tract; Z87.891 Personal history of nicotine dependence; Z68.30 Body mass index [BMI] 30.0-30.9, adult
CPT/HCPCS: 0241U; 36415; 71045; 80053; 80307; 82803; 83605; 83880; 84443; 84484; 85025; 85379; 85610; 96374; 99285; J3490; 93010; 99284

== ENCOUNTER 2024-07-19 09:46 | Emergency (ER) | payer MEDICARE, BC ==
[2024-07-19 12:08] LABS: BASOPHILS ABSOLUTE AUTO 0.07 K/uL (0.00-0.10); BASOPHILS PERCENT AUTO 0.8 % (0.1-1.3); EOSINOPHILS ABSOLUTE AUTO 0.46 K/uL (0.00-0.40); EOSINOPHILS PERCENT AUTO 5.4 % (0.0-5.4); HEMATOCRIT 36.7 % (38.4-49.7); HEMOGLOBIN 12.9 g/dL (12.9-16.9); IMMATURE GRAN ABSOLUTE AUTO 0.04 K/uL (0.00-0.23); IMMATURE GRAN PERCENT AUTO 0.5 % (0.0-0.7); LYMPHOCYTES ABSOLUTE AUTO 1.79 K/uL (0.8-3.3); LYMPHOCYTES PERCENT AUTO 20.9 % (11.4-47.7); MEAN CORPUSCULAR HEMOGLOBIN 33.6 pg (31.6-35.5); MEAN CORPUSCULAR HGB CONC 35.1 g/dL (31.6-35.5); MEAN CORPUSCULAR VOLUME 95.6 fL (81.4-99.0); MONOCYTES ABSOLUTE AUTO 0.93 K/uL (0.20-0.90); MONOCYTES PERCENT AUTO 10.9 % (3.3-12.6); NEUTROPHILS ABSOLUTE AUTO 5.27 K/uL (1.0-7.6); NEUTROPHILS PERCENT AUTO 61.5 % (40.0-78.1); PLATELET COUNT,PLT 184 K/uL (130-375); RED BLOOD CELL COUNT 3.84 M/uL (4.14-5.76); WHITE BLOOD CELL COUNT,WBC 8.6 K/uL (3.2-11.0)
[2024-07-19 12:27] LABS: BLOOD UREA NITROGEN,BUN 61 mg/dL (7-18); CALCIUM 9.7 mg/dL (8.5-10.1); CARBON DIOXIDE,CO2 23 mmol/L (21-32); CHLORIDE,CL 103 mmol/L (100-108); EST CRCL DRUG DOSING (CG) 11.81 mL/min; ESTIMATED GFR 13 mL/min (>60); GLUCOSE RANDOM 91 mg/dL (74-106); SODIUM,NA 137 mmol/L (140-148)
[2024-07-19 12:29] LABS: C-REACTIVE PROTEIN < 0.50 mg/dL (<0.50); CREATININE 4.5 mg/dL (0.8-1.3)
[2024-07-19 12:33] LABS: LACTIC ACID 1.2 mmol/L (0.4-2.0)
[2024-07-19] MEDS ORDERED: Insulin Regular, Human 100 Units/ML 3 ML Vial IVPUSH ONE (12:58)
[2024-07-19] MEDS ORDERED: Glucagon,Human Recombinant 1 MG Vial IM PRN (12:59)
[2024-07-19] MEDS ORDERED: 50% Dextrose in Water 50 ML Syringe IVPUSH PRN (12:59)
[2024-07-19] MEDS: Insulin Regular, Human 100 Units/ML 3 ML Vial IVPUSH ONE (13:21)
[2024-07-19] MEDS: Furosemide 40 MG/4 ML VIAL IVPUSH ONE (13:29)
[2024-07-19] MEDS: Calcium Gluconate 10% 1 GM/10 ML SDV IV ONE (13:29)
[2024-07-19] MEDS: 50% Dextrose in Water 50 ML Syringe IVPUSH ONE (13:30)
[2024-07-19] MEDS: Sodium Zirconium Cyclosilicate 10 GM Packet PO ONE (13:30)
[2024-07-19] MEDS: ALPRAZolam 0.25 MG Tab PO ONE (14:17)
[2024-07-19 16:01] VITALS: BP 131/72; PULSE 79
== END 2024-07-19 17:29 | disposition home or self-care (01) ==
LOC: JP.ED 09:46
DX: E87.5 Hyperkalemia (principal); I10 Essential (primary) hypertension; E78.00 Pure hypercholesterolemia, unspecified; I25.10 Atherosclerotic heart disease of native coronary artery without angina pectoris; I25.2 Old myocardial infarction; J44.9 Chronic obstructive pulmonary disease, unspecified; Z95.1 Presence of aortocoronary bypass graft; Z88.1 Allergy status to other antibiotic agents; Z88.8 Allergy status to other drugs, medicaments and biological substances; Z88.2 Allergy status to sulfonamides; Z79.82 Long term (current) use of aspirin; Z79.899 Other long term (current) drug therapy; Z79.51 Long term (current) use of inhaled steroids; Z90.49 Acquired absence of other specified parts of digestive tract; Z95.5 Presence of coronary angioplasty implant and graft
CPT/HCPCS: 36415; 80048; 82947; 83605; 84132; 84145; 85025; 86140; 87040; 93005; 96374; 96375; 99284; A9270; J0612; J1815; J1940

== ENCOUNTER 2024-10-18 11:57 | Emergency (ER) | payer MEDICARE, BC ==
[2024-10-18 12:10] VITALS: BP 133/63; PULSE 94
[2024-10-18 13:47] LABS: BASOPHILS ABSOLUTE AUTO 0.07 K/uL (0.00-0.10); BASOPHILS PERCENT AUTO 0.4 % (0.1-1.3); EOSINOPHILS ABSOLUTE AUTO 0.35 K/uL (0.00-0.40); EOSINOPHILS PERCENT AUTO 2.1 % (0.0-5.4); HEMATOCRIT 36.9 % (38.4-49.7); HEMOGLOBIN 12.7 g/dL (12.9-16.9); IMMATURE GRAN ABSOLUTE AUTO 0.06 K/uL (0.00-0.23); IMMATURE GRAN PERCENT AUTO 0.4 % (0.0-0.7); LYMPHOCYTES ABSOLUTE AUTO 1.34 K/uL (0.8-3.3); LYMPHOCYTES PERCENT AUTO 7.9 % (11.4-47.7); MEAN CORPUSCULAR HGB CONC 34.4 g/dL (31.6-35.5); MEAN CORPUSCULAR VOLUME 98.9 fL (81.4-99.0); MONOCYTES ABSOLUTE AUTO 2.15 K/uL (0.20-0.90); MONOCYTES PERCENT AUTO 12.7 % (3.3-12.6); NEUTROPHILS PERCENT AUTO 76.5 % (40.0-78.1); PLATELET COUNT,PLT 184 K/uL (130-375); RED BLOOD CELL COUNT 3.73 M/uL (4.14-5.76); WHITE BLOOD CELL COUNT,WBC 16.9 K/uL (3.2-11.0)
[2024-10-18 14:05] LABS: C-REACTIVE PROTEIN 0.51 mg/dL (<0.50); CALCIUM 9.6 mg/dL (8.5-10.1); EST CRCL DRUG DOSING (CG) 9.85 mL/min; POTASSIUM,K 4.7 mmol/L (3.6-5.2)
[2024-10-18 14:06] LABS: ANION GAP 16.7 mmol/L (5.0-14.0)
[2024-10-18 14:07] LABS: CREATININE 5.4 mg/dL (0.8-1.3)
[2024-10-18] MEDS ORDERED: cefTRIAXone 1 GM Vial IM ONE (14:20)
[2024-10-18] MEDS: cefTRIAXone 1 GM, Lidocaine 1% 2.1 ML IM ONE (15:00)
== END 2024-10-18 15:13 | disposition home or self-care (01) ==
LOC: JP.ED 11:57
DX: N39.0 Urinary tract infection, site not specified (principal); N41.9 Inflammatory disease of prostate, unspecified; I25.10 Atherosclerotic heart disease of native coronary artery without angina pectoris; I25.2 Old myocardial infarction; I10 Essential (primary) hypertension; E78.00 Pure hypercholesterolemia, unspecified; J44.9 Chronic obstructive pulmonary disease, unspecified; M19.90 Unspecified osteoarthritis, unspecified site; E66.9 Obesity, unspecified; Z95.5 Presence of coronary angioplasty implant and graft; Z90.49 Acquired absence of other specified parts of digestive tract; Z88.2 Allergy status to sulfonamides; Z88.8 Allergy status to other drugs, medicaments and biological substances; Z88.1 Allergy status to other antibiotic agents; Z79.51 Long term (current) use of inhaled steroids; Z79.82 Long term (current) use of aspirin; Z79.899 Other long term (current) drug therapy; Z68.30 Body mass index [BMI] 30.0-30.9, adult
CPT/HCPCS: 36415; 80048; 85025; 86140; 96372; 99284; J0696; 99283

== ENCOUNTER 2024-11-29 14:14 | Emergency (ER) | payer MEDICARE, BC ==
[2024-11-29] MEDS: Alum Hydrox/Mag Hydrox/Simeth 15 ML, Lidocaine 2% 15 ML PO ONE (14:59)
[2024-11-29 15:20] LABS: PROTHROMBIN TIME 9.9 sec (9.2-10.6)
[2024-11-29 15:32] LABS: A/G RATIO 1.1 (1.2-2.2); ALANINE AMINOTRANSFERASE,ALT 13 U/L (12-78); ALBUMIN 3.3 g/dL (3.4-5.0); ALKALINE PHOSPHATASE 115 U/L (46-116); ANION GAP 11.9 mmol/L (5.0-14.0); ASPARTATE AMNIOTRANSFERASE,AST 26 U/L (15-37); BILIRUBIN TOTAL 1.4 mg/dL (0.2-1.0); BLOOD UREA NITROGEN,BUN 59 mg/dL (7-18); CALCIUM 9.3 mg/dL (8.5-10.1); CARBON DIOXIDE,CO2 26 mmol/L (21-32); CHLORIDE,CL 102 mmol/L (100-108); EST CRCL DRUG DOSING (CG) 9.67 mL/min; ESTIMATED GFR 10 mL/min (>60); GLUCOSE RANDOM 103 mg/dL (74-106); PRO B-TYPE NATRIUR PEPT,BNPPRO 1148 pg/mL (5-450); PROTEIN TOTAL,TP 6.4 g/dL (6.4-8.2); SODIUM,NA 140 mmol/L (140-148)
[2024-11-29 15:33] LABS: CREATININE 5.5 mg/dL (0.8-1.3)
[2024-11-29 15:46] LABS: BASOPHILS PERCENT AUTO 0.9 % (0.1-1.3); EOSINOPHILS ABSOLUTE AUTO 0.72 K/uL (0.00-0.40); EOSINOPHILS PERCENT AUTO 6.6 % (0.0-5.4); HEMATOCRIT 38.7 % (38.4-49.7); HEMOGLOBIN 13.2 g/dL (12.9-16.9); IMMATURE GRAN ABSOLUTE AUTO 0.09 K/uL (0.00-0.23); IMMATURE GRAN PERCENT AUTO 0.8 % (0.0-0.7); LYMPHOCYTES ABSOLUTE AUTO 2.02 K/uL (0.8-3.3); LYMPHOCYTES PERCENT AUTO 18.4 % (11.4-47.7); MEAN CORPUSCULAR HEMOGLOBIN 33.8 pg (31.6-35.5); MEAN CORPUSCULAR HGB CONC 34.1 g/dL (31.6-35.5); MONOCYTES ABSOLUTE AUTO 1.53 K/uL (0.20-0.90); MONOCYTES PERCENT AUTO 13.9 % (3.3-12.6); NEUTROPHILS ABSOLUTE AUTO 6.53 K/uL (1.0-7.6); NEUTROPHILS PERCENT AUTO 59.4 % (40.0-78.1); PLATELET COUNT,PLT 199 K/uL (130-375); RED BLOOD CELL COUNT 3.91 M/uL (4.14-5.76)
[2024-11-29 15:51] VITALS: BP 171/84; PULSE 79
== END 2024-11-29 16:08 | disposition home or self-care (01) ==
LOC: JP.ED 14:14
DX: K21.9 Gastro-esophageal reflux disease without esophagitis (principal); I10 Essential (primary) hypertension; I25.2 Old myocardial infarction; E78.00 Pure hypercholesterolemia, unspecified; I25.10 Atherosclerotic heart disease of native coronary artery without angina pectoris; J44.9 Chronic obstructive pulmonary disease, unspecified; E66.9 Obesity, unspecified; Z95.1 Presence of aortocoronary bypass graft; Z95.5 Presence of coronary angioplasty implant and graft; Z90.49 Acquired absence of other specified parts of digestive tract; Z95.0 Presence of cardiac pacemaker; Z79.82 Long term (current) use of aspirin; Z79.899 Other long term (current) drug therapy; Z79.2 Long term (current) use of antibiotics; Z79.51 Long term (current) use of inhaled steroids; Z88.1 Allergy status to other antibiotic agents; Z88.2 Allergy status to sulfonamides; Z88.8 Allergy status to other drugs, medicaments and biological substances; Z68.30 Body mass index [BMI] 30.0-30.9, adult
CPT/HCPCS: 36415; 71045; 80053; 83880; 84484; 85025; 85610; 87428; 93005; 99284; A9270

== ENCOUNTER 2025-03-06 15:08 | Emergency (ER) | payer MEDICARE, BC ==
[2025-03-06 15:29] VITALS: BP 145/80; PULSE 97
[2025-03-06 16:05] LABS: BASOPHILS ABSOLUTE AUTO 0.08 K/uL (0.00-0.10); BASOPHILS PERCENT AUTO 0.7 % (0.1-1.3); EOSINOPHILS ABSOLUTE AUTO 0.32 K/uL (0.00-0.40); EOSINOPHILS PERCENT AUTO 2.7 % (0.0-5.4); HEMATOCRIT 37.4 % (38.4-49.7); HEMOGLOBIN 13.2 g/dL (12.9-16.9); IMMATURE GRAN PERCENT AUTO 0.8 % (0.0-0.7); LYMPHOCYTES ABSOLUTE AUTO 2.13 K/uL (0.8-3.3); MEAN CORPUSCULAR HEMOGLOBIN 34.7 pg (31.6-35.5); MEAN CORPUSCULAR HGB CONC 35.3 g/dL (31.6-35.5); MEAN CORPUSCULAR VOLUME 98.4 fL (81.4-99.0); MONOCYTES ABSOLUTE AUTO 1.46 K/uL (0.20-0.90); MONOCYTES PERCENT AUTO 12.3 % (3.3-12.6); NEUTROPHILS ABSOLUTE AUTO 7.74 K/uL (1.0-7.6); NEUTROPHILS PERCENT AUTO 65.5 % (40.0-78.1); PLATELET COUNT,PLT 132 K/uL (130-375); WHITE BLOOD CELL COUNT,WBC 11.8 K/uL (3.2-11.0)
[2025-03-06 16:27] LABS: A/G RATIO 1.3 (1.2-2.2); ALANINE AMINOTRANSFERASE,ALT 25 U/L (12-78); ALBUMIN 3.3 g/dL (3.4-5.0); ALKALINE PHOSPHATASE 117 U/L (46-116); ASPARTATE AMNIOTRANSFERASE,AST 68 U/L (15-37); BILIRUBIN TOTAL 2.3 mg/dL (0.2-1.0); BLOOD UREA NITROGEN,BUN 75 mg/dL (7-18); CALCIUM 8.8 mg/dL (8.5-10.1); CARBON DIOXIDE,CO2 25 mmol/L (21-32); CHLORIDE,CL 99 mmol/L (100-108); EST CRCL DRUG DOSING (CG) 8.17 mL/min; ESTIMATED GFR 8 mL/min (>60); GLUCOSE RANDOM 119 mg/dL (74-106); POTASSIUM,K 3.5 mmol/L (3.6-5.2); PROTEIN TOTAL,TP 5.9 g/dL (6.4-8.2); SODIUM,NA 140 mmol/L (140-148)
[2025-03-06 16:35] LABS: ANION GAP 19.5 mmol/L (5.0-14.0); CREATININE 6.4 mg/dL (0.8-1.3)
== END 2025-03-06 17:12 | disposition home or self-care (01) ==
LOC: JP.ED 15:08
DX: I10 Essential (primary) hypertension (principal); N28.9 Disorder of kidney and ureter, unspecified; I25.10 Atherosclerotic heart disease of native coronary artery without angina pectoris; E66.9 Obesity, unspecified; Z88.8 Allergy status to other drugs, medicaments and biological substances; Z79.899 Other long term (current) drug therapy; Z79.82 Long term (current) use of aspirin; E78.00 Pure hypercholesterolemia, unspecified; Z90.49 Acquired absence of other specified parts of digestive tract; Z68.28 Body mass index [BMI] 28.0-28.9, adult
CPT/HCPCS: 36415; 80053; 85025; 99284